=== PATIENT | male | born 1950 | race Caucasian/White ===

== ENCOUNTER 2017-11-19 11:11 | Inpatient (IN) ==
--- NOTE | 2017-11-19 13:49 | Emergency Department Note ---
Disposition Clinical Impression: Atrial fibrillation Qualifiers: Atrial fibrillation type: paroxysmal Qualified Code(s): I48.0 - Paroxysmal atrial fibrillation Disposition: Admitted As Inpatient Condition: Fair Referrals: Carmella Christianson DO [Primary Care Provider] - Forms: ED Satisfaction Letter Time of Disposition: 13:56 Arrhythmia/Palpitations HPI - General Chief Complaint: ED Arrhythmia/Palpitations Stated Complaint: A-Fib RVR(Dr. Teran) Time Seen by Provider: 11/19/17 12:19 Source: patient Limitations: no limitations Nursing Notes Reviewed: Yes Vital Signs Reviewed: Yes - History of Present Illness HPI Narrative: 67-year-old male who was seen by his supervisor inspection room today and found to be in A. fib with RVR. Sent here for further evaluation. Last echo I could find was in 2012 with an EF of 50-55%. Pt Subjective Complaint: rapid heart beat, "heart racing" Onset (ago): Just FISH [employer] Duration: constant Severity: moderate Context: occurred during rest Arrhythmia History: atrial fibrillation Associated symptoms: Reports: other (Diarrhea) - Related Data Home Medications Medication Instructions Recorded Confirmed Aspirin Enteric Coated [Aspirin EC] 81 mg PO DAILY 09/09/15 08/29/17 Atorvastatin [Lipitor] 40 mg PO DAILY 09/09/15 08/29/17 Megestrol Acetate [Megace] 400 mg PO BID 09/09/15 08/29/17 Multivitamin [Flintstones] 1 tab PO DAILY 09/09/15 08/29/17 Nitroglycerin [Nitrostat] 0.4 mg SL Q5M PRN 09/09/15 08/29/17 LevETIRAcetam [Levetiracetam] 750 mg PO BID 07/06/16 08/29/17 Zonisamide [Zonegran] 100 mg PO DAILY 07/06/16 08/29/17 Cholecalciferol (D-3) [Vitamin D] 5,000 unit PO DAILY 01/01/17 08/29/17 Clobetasol Propionate [Temovate] 1 appl TP DAILY 01/01/17 08/29/17 Diclofenac Sodium [Voltaren] 1 appl TP QID 01/01/17 08/29/17 FLUoxetine HCl [PROzac] 20 mg PO DAILY 01/01/17 08/29/17 Mirtazapine [Remeron] 15 mg PO HS 01/01/17 08/29/17 Omeprazole [PriLOSEC] 40 mg PO DAILY 01/01/17 08/29/17 Psyllium Husk [Metamucil] 0.52 gm PO DAILY 01/01/17 08/29/17 Tamsulosin [Flomax] 0.4 mg PO DAILY 01/01/17 08/29/17 Testosterone Cypionate 200 mg IM AD 01/01/17 08/29/17 [Depo-Testosterone] Previous Rx's Medication Instructions Recorded Sotalol [Betapace] 120 mg PO 1100,2300 #60 tablet 03/09/16 HYDROcodone/Acet 5/325 mg [[place] 1 tab PO Q4H PRN #12 tab 08/08/17 5-325 mg] Folic Acid 1 mg PO DAILY #30 tablet 08/22/17 Diclofenac Sodium [Voltaren] 50 mg PO Q8HR PRN #18 tablet. 08/31/17 HYDROcodone/Acet 5/325 mg [[place] 1 tab PO Q6H PRN #10 tab 08/31/17 5-325 mg] Tramadol HCl [Ultram] 50 mg PO QID #8 tab 09/23/17 Allergies Allergy/AdvReac Type Severity Reaction Status Date / Time No Known Allergies Allergy Verified 09/23/17 13:37 All systems ED: reviewed and negative except as stated. Constitutional: Denies: fever, chills, weakness, weight change Eyes: Denies: eye pain, eye discharge, vision change ENT ED: Denies: ear pain, throat pain, dental pain, hearing loss, epistaxis, congestion, dysphagia Cardiovascular: Reports: palpitations. Denies: chest pain, dyspnea on exertion , edema, syncope Respiratory: Denies: cough, dyspnea, wheezes, hemoptysis, stridor Gastrointestinal: Denies: abdominal pain, nausea, vomiting, diarrhea, constipation, hematemesis, melena, hematochezia Genitourinary: Denies: urgency, dysuria, frequency, hematuria Musculoskeletal: Denies: back pain, neck pain, arthralgia, myalgia Integumentary: Denies: rash, abrasion, lesions Neurological: Denies: headache, weakness, numbness, paresthesias, confusion, abnormal gait, vertigo Psychiatric: Denies: anxiety, depression, suicidal thoughts, homicidal thoughts , auditory hallucinations, visual hallucinations Endocrine: Denies: fatigue Hematological/Lymphatic: Denies: easy bleeding, easy bruising Allergic/Immunologic: Denies: facial swelling, urticaria Past Medical History - Past Medical History Medical history: Reports: atrial fibrillation, CVA, hyperlipidemia, hypertension , myocardial infarction, peripheral artery disease, seizures Surgical history: Reports: appendectomy, carotid endarterectomy, orthopedic, other, other Psychiatric history: Reports: no psych history - Social History Smoking Status: Former smoker Smokeless Tobacco Status: No Alcohol use: Reports: occasionally Drug use: Reports: none Physical Exam - General Limitations: no limitations General appearance: alert - Head Head exam: atraumatic, normocephalic, normal inspection - Eye Eye exam: Present: normal appearance, PERRL, EOMI - Expanded Eye Exam Pupils: Left: reactive - ENT ENT exam: normal exam, normal oropharynx, mucous membranes moist - Expanded ENT Exam External ear exam: Present: normal external inspection Mouth exam: Present: normal external inspection Teeth exam: Present: normal inspection Throat exam: Present: normal inspection - Neck Neck exam: Present: normal inspection, full ROM, trachea midline - Chest Chest inspection: Present: normal inspection, symmetric chest wall rise - Respiratory Respiratory exam: Present: normal lung sounds bilaterally - Cardiovascular Cardiovascular exam: Present: tachycardia, irregular rhythm, normal heart sounds - Abdominal Exam Abdominal exam: Present: soft, Non-Tender. Absent: tenderness, distention, guarding, rebound, rigidity - Extremities Exam Extremities exam: Present: normal inspection, full ROM. Absent: tenderness, pedal edema - Expanded Upper Extremity Exam Shoulder exam: Present: normal inspection, full ROM Arm exam: Present: normal inspection, full ROM Elbow exam: Present: normal inspection, full ROM Forearm/Wrist exam: Present: normal inspection, full ROM Hand exam: Present: normal inspection, full ROM Vascular exam: Normal: capillary refill, radial pulse - Expanded Lower Extremity Exam Hip/Pelvis exam: Present: normal inspection, full ROM Upper leg exam: Present: normal inspection, full ROM Knee exam: Present: normal inspection, full ROM Lower leg exam: Present: normal inspection, full ROM Ankle exam: Present: normal inspection, full ROM Foot/toe exam: Present: normal inspection, full ROM Neurovascular/Tendon exam: Absent: motor deficit, sensory deficit, tendon deficit Gait: not tested/not observed - Back Exam Back exam: Present: normal inspection, full ROM. Absent: tenderness - Neurological Exam Neurological exam: Present: alert, oriented X3 - Expanded Neurological Exam Patient oriented to: Present: person, place, time Coma Scale Eye Opening: Spontaneous Coma Scale Motor Response: Obeys Commands Coma Scale Verbal Response: Oriented Coma Scale Total: 15 - Psychiatric Psychiatric exam: Present: normal affect, normal mood - Skin Skin exam: Present: warm, dry, intact, normal color Course - Reevaluation(s) Reevaluation #1: 67-year-old who has a history of A. fib in the past was sent by cardiology due to atrial fibrillation with rapid ventricular response. When he arrived here he was in a sinus rhythm but he has intermittently went into A. fib while here with a rate up to 164. Patient obtain a cardiology workup and admit for observation and they will see the patient and decide where to go from here. Time: 15:35 - Consultations Consultation #1: Discussed with Dr. Paul, admit to the hospitalist with consult. Time: 15:35 Consultation #2: Discussed with Dr. Sutton, admit. Time: 15:58 Vital Signs Temperature 98.0 F 11/19/17 11:27 Pulse Rate 118 11/19/17 11:27 Respiratory Rate 18 11/19/17 11:27 Blood Pressure 117/87 11/19/17 11:27 O2 Sat by Pulse Oximetry 98 11/19/17 11:27 Temperature 98.0 F 11/19/17 11:27 Pulse Rate 118 11/19/17 11:27 Respiratory Rate 18 11/19/17 11:27 Blood Pressure 117/87 11/19/17 11:27 O2 Sat by Pulse Oximetry 98 11/19/17 11:27 Oxygen Delivery Oxygen Delivery Room Air Arrhythmia/Palpitations - Lab Data Lab results reviewed: Yes I reviewed the patient's lab results. Result diagrams: 11/19/17 13:32 11/19/17 13:32 Lab Results 11/19/17 11/19/17 11/19/17 Range/Units 13:32 13:32 13:32 WBC 11.2 H (4.3-11.1) K/mcL RBC 5.31 (4.19-5.50) M/mcL Hgb 15.6 (12.9-16.9) g/dL Hct 47.7 (37.5-50.1) % MCV 89.8 (83.0-100.0) fL MCH 29.4 (28.0-33.3) pg MCHC 32.7 (31.6-35.5) g/dL RDW 14.8 H (11.5-14.5) % Plt Count 211 (140-400) K/mcL MPV 11.3 (9.4-12.4) fL Immature Gran % 0.4 (0-4) % Seg Neutrophils % 62.4 % Lymphocytes % 25.6 % Monocytes % 9.3 % Eosinophils % 1.7 % Basophils % 0.6 % Neutrophils # 7.0 (1.6-8.9) K/mcL Lymphocytes # 2.9 (0.6-4.6) K/mcL Monocytes # 1.0 (0.0-1.3) K/mcL Eosinophils # 0.2 (0.0-0.6) K/mcL Basophils # 0.1 (0.0-0.2) K/mcL Sodium 138 (136-145) mEq/L Potassium 4.1 (3.5-5.1) mEq/L Chloride 104 (98-107) mEq/L Carbon Dioxide 23 (23-29) mEq/L BUN 7 L (8-23) mg/dL Creatinine 0.91 (0.70-1.30) mg/dL Est GFR ( Amer) > 60 (> 60) Est GFR (Non-Af Amer) > 60 (> 60) BUN/Creatinine Ratio 8 (6-26) Glucose 106 H (70-105) mg/dL Calculated Osmolality 284 (280-300) Calcium 9.6 (8.6-10.3) mg/dL Troponin I < 0.03 (< 0.04) ng/mL TSH 3.121 (0.340-5.600) mcIU/mL - Radiology Data Radiology results reviewed: Yes I reviewed the patient's radiology results. Chest X-Ray 11/19/17 11:36 IMPRESSION: No acute findings D/ / Ashli Alexis MD / Ashli Alexis MD Interpreting Provider: Ashli Alexis MD - EKG Data EKG shows normal: sinus rhythm Rate: tachycardia Rhythm: NSR Interpretation: no acute changes
[2017-11-19 13:54] LABS: Basophils # 0.1 K/mcL (0.0-0.2); Basophils % 0.6 %; Eosinophils # 0.2 K/mcL (0.0-0.6); Eosinophils % 1.7 %; Hematocrit 47.7 % (37.5-50.1); Hemoglobin 15.6 g/dL (12.9-16.9); Immature Granulocytes % 0.4 % (0-4); Lymphocytes # 2.9 K/mcL (0.6-4.6); Lymphocytes % 25.6 %; Mean Corpuscular HGB Conc 32.7 g/dL (31.6-35.5); Mean Corpuscular Hemoglobin 29.4 pg (28.0-33.3); Mean Corpuscular Volume 89.8 fL (83.0-100.0); Mean Platelet Volume 11.3 fL (9.4-12.4); Monocytes % 9.3 %; Platelet Count 211 K/mcL (140-400); Red Blood Count 5.31 M/mcL (4.19-5.50); Red Cell Distribution Width 14.8 % (11.5-14.5); Segmented Neutrophils % 62.4 %
[2017-11-19 14:42] LABS: Calcium 9.6 mg/dL (8.6-10.3); Carbon Dioxide 23 mEq/L (23-29); Chloride 104 mEq/L (98-107); Potassium 4.1 mEq/L (3.5-5.1); Sodium 138 mEq/L (136-145)
[2017-11-19 14:47] LABS: BUN/Creatinine Ratio 8 (6-26); Blood Urea Nitrogen 7 mg/dL (8-23); Glucose 106 mg/dL (70-105); Osmolality,Calculated 284 (280-300); eGFR For African Americans > 60 (> 60); eGFR For Non-African Americans > 60 (> 60)
[2017-11-19 14:57] LABS: Thyroid Stimulating Hormone 3.121 mcIU/mL (0.340-5.600)
[2017-11-19] MEDS ORDERED: *HR* OxyCODONE/APAP 5/325 TABLET PO ONE (15:27)
--- NOTE | 2017-11-19 20:59 | Internal Med History&Physical ---
Date of Encounter: 11/19/17 Time of Encounter: 17:00 Assessment and Plan (1) Atrial fibrillation with RVR Current visit: Yes Status: Acute -Patient admits to running out of his sotalol approximately 2-3 weeks ago. -TSH was within normal limits and cardiac biomarkers are negative. In addition no acute findings on chest x-ray. -Patient was noted to have a heart rate of 119 and was started on diltiazem. -Will continue Cardizem drip and consult cardiology (2) Seizures Current visit: Yes Status: Acute -Controlled, continue home medications (3) HTN (hypertension) Current visit: Yes Status: Acute -Controlled, continue home medications Qualifiers: Hypertension type: essential hypertension Qualified Code(s): I10 - Essential (primary) hypertension (4) HLD (hyperlipidemia) Current visit: Yes Status: Acute -Continue home medications Qualifiers: Hyperlipidemia type: unspecified Qualified Code(s): E78.5 - Hyperlipidemia , unspecified (5) DVT prophylaxis Current visit: Yes Status: Acute -Heparin subcutaneous Internal Medicine - H&P: HPI Chief complaint: palpitations Admitted From: Home Plans for Post Hospital Care: Home History of present illness: Patient is a 59-year-old male with past medical history significant for coronary arterial disease (stent), hypertension, TIA, seizures and COPD who presented to the ER on 11/19/17 due to palpitations. Patient admits to running out of his sotalol approximately 2-3 weeks ago. Patients manager it training office recommend the patient come into the ER for evaluation. Patient was noted to have a heart rate of 119 and was started on diltiazem. TSH was within normal limits and cardiac biomarkers are negative. In addition no acute findings on chest x-ray. Patient will be admitted to the medical floor for treatment of atrial fibrillation with RVR. Past Med Surg Social Fam HX - Past Medical History Medical history: atrial fibrillation, CVA, hyperlipidemia, hypertension, myocardial infarction, peripheral artery disease, seizures Psychiatric history: no psych history - Past Surgical History Surgical History: appendectomy, carotid endarterectomy, orthopedic, other, other - Social History Smoking Status: Former smoker Smokeless Tobacco Status: No Alcohol use: occasionally Drug use: marijuana Internal Medicine - H&P: Meds Aspirin Enteric Coated [Aspirin EC] 81 mg PO DAILY 09/09/15 [History] Atorvastatin [Lipitor] 40 mg PO DAILY 09/09/15 [History] Megestrol Acetate [Megace] 400 mg PO BID 09/09/15 [History] Multivitamin [Flintstones] 1 tab PO DAILY 09/09/15 [History] Nitroglycerin [Nitrostat] 0.4 mg SL Q5M PRN 09/09/15 [History] Sotalol [Betapace] 120 mg PO 1100,2300 #60 tablet 03/09/16 [Rx] LevETIRAcetam [Levetiracetam] 750 mg PO BID 07/06/16 [History] Zonisamide [Zonegran] 100 mg PO DAILY 07/06/16 [History] Cholecalciferol (D-3) [Vitamin D] 5,000 unit PO DAILY 01/01/17 [History] Clobetasol Propionate [Temovate] 1 appl TP DAILY 01/01/17 [History] Diclofenac Sodium [Voltaren] 1 appl TP QID 01/01/17 [History] FLUoxetine HCl [PROzac] 20 mg PO DAILY 01/01/17 [History] Mirtazapine [Remeron] 15 mg PO HS 01/01/17 [History] Omeprazole [PriLOSEC] 40 mg PO DAILY 01/01/17 [History] Psyllium Husk [Metamucil] 0.52 gm PO DAILY 01/01/17 [History] Tamsulosin [Flomax] 0.4 mg PO DAILY 01/01/17 [History] Testosterone Cypionate [Depo-Testosterone] 200 mg IM AD 01/01/17 [History] HYDROcodone/Acet 5/325 mg [[place] 5-325 mg] 1 tab PO Q4H PRN #12 tab 08/08/17 [Rx ] Folic Acid 1 mg PO DAILY #30 tablet 08/22/17 [Rx] Diclofenac Sodium [Voltaren] 50 mg PO Q8HR PRN #18 tablet. 08/31/17 [Rx] HYDROcodone/Acet 5/325 mg [[place] 5-325 mg] 1 tab PO Q6H PRN #10 tab 08/31/17 [Rx ] Tramadol HCl [Ultram] 50 mg PO QID #8 tab 09/23/17 [Rx] 3 Allergy/AdvReac Type Severity Reaction Status Date / Time No Known Allergies Allergy Verified 09/23/17 13:37 All Systems PM: A 10-system review of systems was performed and is negative for pertinent findings except as documented above in the HPI. - Constitutional Vitals: Temp Pulse Resp BP Pulse Ox 98.3 F 99 18 139/88 95 11/19/17 18:58 11/19/17 18:58 11/19/17 18:58 11/19/17 18:58 11/19/17 18:58 General appearance: Present: A&O X 3, no acute distress - Head Head exam: Present: normocephalic - Eye Eye exam: Present: EOMI. Absent: conjunctival injection - ENT ENT exam: Present: mucous membranes moist - Respiratory Respiratory exam: Present: CTAB. Absent: accessory muscle use, rales, rhonchi, wheezes - Cardiovascular Cardiovascular exam: Present: RRR, +S1, +S2. Absent: diastolic murmur, gallop, rubs, systolic murmur - GI/Abdominal GI/Abdominal exam: Present: normal bowel sounds, soft, no peritoneal signs. Absent: distended, tenderness - Neurological Exam Neurological exam: Present: oriented X3 - Psychiatric Psychiatric exam: Present: normal mood - Skin Skin exam: Present: normal color Internal Med - H&P Results - Labs CBC & Chem 7: 11/19/17 13:32 11/19/17 13:32
[2017-11-19] MEDS ORDERED: Naloxone 0.4 MG/ML INJ IVP PRN (21:05)
[2017-11-19] MEDS ORDERED: *HR* Heparin 5,000 UNIT/ML VIAL SQ SCH (22:00)
[2017-11-19 22:26] LABS: INR 1.1
[2017-11-20] MEDS ORDERED: Nitroglycerin 0.4 MG TAB.SUBL SL PRN (01:37)
[2017-11-20] MEDS: *HR* HYDROcodone/Acet 5/325 mg TABLET PO PRN ×4 (01:57→22:01)
[2017-11-20] MEDS: levETIRAcetam 250 MG TABLET PO SCH ×3 (01:57→22:01)
[2017-11-20 04:38] LABS: BUN/Creatinine Ratio 9 (6-26); Blood Urea Nitrogen 9 mg/dL (8-23); Calcium 8.9 mg/dL (8.6-10.3); Carbon Dioxide 27 mEq/L (23-29); Chloride 104 mEq/L (98-107); Glucose 93 mg/dL (70-105); Osmolality,Calculated 280 (280-300); Potassium 3.5 mEq/L (3.5-5.1); Sodium 136 mEq/L (136-145); eGFR For African Americans > 60 (> 60); eGFR For Non-African Americans > 60 (> 60)
[2017-11-20] MEDS ORDERED: *HR* Enoxaparin 80 MG/0.8 ML SYRINGE SQ SCH (06:00)
[2017-11-20 06:05] LABS: Basophils # 0.1 K/mcL (0.0-0.2); Basophils % 0.5 %; Eosinophils # 0.3 K/mcL (0.0-0.6); Eosinophils % 2.6 %; Hematocrit 39.4 % (37.5-50.1); Immature Granulocytes % 0.4 % (0-4); Lymphocytes # 2.7 K/mcL (0.6-4.6); Lymphocytes % 27.7 %; Mean Corpuscular HGB Conc 31.7 g/dL (31.6-35.5); Mean Corpuscular Hemoglobin 28.5 pg (28.0-33.3); Mean Platelet Volume 11.3 fL (9.4-12.4); Monocytes # 1.1 K/mcL (0.0-1.3); Monocytes % 10.7 %; Neutrophils # 5.7 K/mcL (1.6-8.9); Platelet Count 183 K/mcL (140-400); Red Blood Count 4.38 M/mcL (4.19-5.50); Red Cell Distribution Width 14.8 % (11.5-14.5); Segmented Neutrophils % 58.1 %
[2017-11-20 06:12] LABS: Hemoglobin 12.5 g/dL (12.9-16.9)
[2017-11-20] MEDS: Aspirin Enteric Coated 81 MG Tablet PO SCH (08:23)
[2017-11-20] MEDS: FLUoxetine 20 MG CAPSULE PO SCH (08:24)
[2017-11-20] MEDS: Megestrol Acetate 400 MG/10 ML UDC PO SCH ×2 (08:24→22:00)
[2017-11-20] MEDS ORDERED: Diclofenac Sodium [Voltaren] 1 APPL TP SCH (09:00)
--- NOTE | 2017-11-20 09:57 | Cardiology Consult Note ---
Date of Encounter: 11/20/17 Time of Encounter: 09:53 Assessment and Plan (1) Atrial fibrillation with RVR Current Visit: Yes Status: Acute Presents with atrial fibrillation with RVR in the setting of running out of sotalol over one month ago. Now back to NSR on cardizem gtt. Convert to oral metoprolol (history of CAD). C/o atypical chest discomfort with afib. He is a CHADS VASc=5 for age, HTN, CAD, and CVA2. Ideally AC with coumadin would be recommended. He was taken off coumadin due to frequent falls. Patient states that he continues to fall and hits his head all of the time. Continue asa and plavix. He is not a good candidate for anti-arrhythmic therapy due to inability to take AC. Increased risk of CVA discussed and he voiced understanding. TSH is normal. Check TTE. (2) CAD (coronary artery disease) Current Visit: Yes Status: Acute H/o VT and PCI in 2007. Last stress test in 2015. Has atypical chest pain that occurs with afib. Troponin negative. Consider stress test in out-patient setting if indicated. TTE pending. Continue asa, statin, and add beta-eunice. Qualifiers: Coronary Disease-Associated Artery/Lesion type: [place] artery [place] vs. transplanted heart: [place] heart Associated angina: without angina Qualified Code(s): I25.10 - Atherosclerotic heart disease of [place] coronary artery without angina pectoris Discussion w patient/family: The assessment and plan as outlined above was discussed with the patient and/or family members who expressed understanding and agreement. All questions were answered. Thank you for involving us in the care of your patient. Please call with any questions. History of Present Illness Consult date: 11/20/17 Requesting physician: Frantz Madden Consult reason: afib with rvr Chief complaint: "I ran out of medication." History of present illness: Mr. Hernandez is a 67 year old male with a history of PAF, CAD s/p VT in 2007 with PCI to the LAD, COPD, CVA, and seizures. He was recommended to go to the ED when he was found to have afib with RVR in the cardiology office. HR 140's. He reported running out of his sotalol over a month ago. He is not on coumadin due to frequent falls from seizures and left sided weakness d/t history of CVA. He was started on IV cardizem and converted to NSR overnight. C/o stable SOB with exertion. C/o intermittent right sided chest discomfort with palpitations at rest that is not like his previous VT. Past Med Surg Social Fam HX - Past Medical History Medical history: atrial fibrillation, coronary artery disease, CVA, hyperlipidemia, hypertension, myocardial infarction, peripheral artery disease, seizures Psychiatric history: no psych history - Past Surgical History Surgical History: appendectomy, carotid endarterectomy, orthopedic, other, other - Social History Smoking Status: Former smoker Smokeless Tobacco Status: No Alcohol use: occasionally Drug use: marijuana Medications and Allergies Aspirin Enteric Coated [Aspirin EC] 81 mg PO DAILY 09/09/15 [History] Atorvastatin [Lipitor] 40 mg PO DAILY 09/09/15 [History] Megestrol Acetate [Megace] 400 mg PO BID 09/09/15 [History] Multivitamin [Flintstones] 1 tab PO DAILY 09/09/15 [History] Nitroglycerin [Nitrostat] 0.4 mg SL Q5M PRN 09/09/15 [History] Sotalol [Betapace] 120 mg PO 1100,2300 #60 tablet 03/09/16 [Rx] LevETIRAcetam [Levetiracetam] 1,000 mg PO BID 07/06/16 [History] Zonisamide [Zonegran] 100 mg PO DAILY 07/06/16 [History] Cholecalciferol (D-3) [Vitamin D] 5,000 unit PO DAILY 01/01/17 [History] Diclofenac Sodium [Voltaren] 1 appl TP QID 01/01/17 [History] Mirtazapine [Remeron] 15 mg PO HS 01/01/17 [History] Omeprazole [PriLOSEC] 40 mg PO DAILY 01/01/17 [History] Psyllium Husk [Metamucil] 0.52 gm PO DAILY 01/01/17 [History] Tamsulosin [Flomax] 0.4 mg PO DAILY 01/01/17 [History] Testosterone Cypionate [Depo-Testosterone] 200 mg IM AD 01/01/17 [History] Folic Acid 1 mg PO DAILY #30 tablet 08/22/17 [Rx] Diclofenac Sodium [Voltaren] 50 mg PO Q8HR PRN #18 tablet. 08/31/17 [Rx] Clopidogrel [Plavix] 75 mg PO DAILY 11/20/17 [History] Cyanocobalamin (B-12) [Vitamin B12] 1,000 mcg IM AD 11/20/17 [History] 3 Allergy/AdvReac Type Severity Reaction Status Date / Time No Known Allergies Allergy Verified 09/23/17 13:37 All Systems Review: A 10-system review of systems was performed and is negative for pertinent findings except as documented above in the HPI. Physical Examination Vital Signs, Last 4 Hours Temp Pulse Resp BP Pulse Ox 11/20/17 08:27 97.9 F 77 16 146/87 96 General: Conversant, No Apparent Distress HEENT: Atraumatic, Normocephaly, Mucus Membranes Moist Neck: No JVD, Normal carotid pulses Cardiac: Reg Rate and Rhythm, Normal S1 and S2, No Murmur Lungs: Normal Breath Sounds, No Wheeze, Rales, Rhonchi Neuro: Alert and responsive, No focal deficits noted Abdomen: Soft, Non-Tender Skin: No rashes noted on visualized skin Musculoskeletal: No Chest Wall Tenderness Extremities: No Clubbing, No Cyanosis, No Edema, Normal Pulses Results 11/20/17 05:25 11/20/17 02:48 Lab Results 11/19/17 11/20/17 11/20/17 22:11 02:48 05:25 WBC 9.8 Hgb 12.5 L D Hct 39.4 Plt Count 183 INR 1.1 Sodium 136 Potassium 3.5 Chloride 104 Carbon Dioxide 27 BUN 9 Creatinine 0.99 Glucose 93 Calcium 8.9 - Imaging and Cardiology Echo: report reviewed - EKG Interpretation EKG results cardiology: personally reviewed Consult Discharge Plan - Plan Referrals: Carmella Christianson DO [Primary Care Provider] -
[2017-11-20] MEDS: CLOBETASOL PROPIONATE 15 GM TUBE TP SCH (10:17)
--- NOTE | 2017-11-20 11:01 | Event Note ---
Date of Encounter: 11/20/17 Time of Encounter: 10:51 [facility] will not allow me to provide attestation to Ayaan Jonathan's consultation from earlier today. Please consider this my attestation to that consultation. Patient independently seen and examined. Case discussed with nurse practitioner. Agree with findings, impressions, and plan as outlined in that note with the following addition: Impressions: PAF - was AF with RVR, now spontaineous conversion to NSR. Medical noncompliance - not taking sotalol CAD s/p SD 2008 s/p PCI LAD COPD Prior CVA History of seizure disorder Recommendations: Patient reportedly not on coumadin due to seizure disorder, walks with cane, describes frequent falls. Given reported inability to anti-coagulate, then recommend continue rate control strategy with aspirin/Plavix. Patient aware of increased risk of cardioembolic events. Re: CAD, continue aspirin/statin/bb therapy. If no significant findings on TTE, then no further inpatient cardiology recommendations.
[2017-11-20] MEDS: Artificial Tears SOLN 15 ML BOTTLE BOTH EYES PRN (12:42)
--- NOTE | 2017-11-20 14:11 | Electrocardiograph Report ---
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
--- NOTE | 2017-11-20 14:23 | Internal Med Progress Note ---
Date of Encounter: 11/20/17 Time of Encounter: 13:56 - Assessment and plan (1) Atrial fibrillation with RVR Current Visit: Yes Status: Acute Assessment and plan: Cardiology evaluation appreciated Started metoprolol off cardizem gtt not on anticoagulation due to history of seizures continue ASA/Plavix pt has history of CVA in the past as well f/u 2D echo (2) CAD (coronary artery disease) Current Visit: Yes Status: Chronic Assessment and plan: no signs of angina present continue ASA, Plavix, Statin, BB Qualifiers: Coronary Disease-Associated Artery/Lesion type: [place] artery [place] vs. transplanted heart: [place] heart Associated angina: without angina Qualified Code(s): I25.10 - Atherosclerotic heart disease of [place] coronary artery without angina pectoris (3) DVT prophylaxis Current Visit: Yes Status: Acute Assessment and plan: Lovenox SQ (4) HLD (hyperlipidemia) Current Visit: Yes Status: Chronic Assessment and plan: continue home dose of Lipitor Qualifiers: Hyperlipidemia type: unspecified Qualified Code(s): E78.5 - Hyperlipidemia , unspecified (5) HTN (hypertension) Current Visit: Yes Status: Chronic Assessment and plan: BP within acceptable range continue home meds Qualifiers: Hypertension type: essential hypertension Qualified Code(s): I10 - Essential (primary) hypertension - Subjective Interval history: Patient seen and examined at bedside. Resting comfortably in bed and denies any discomfort at this time. Rate currently controlled with BB and is off cardizem gtt Pt not on anticoagulation due to history of seizure dx. Cardiology on board - Constitutional Vitals: Temp Pulse Resp BP Pulse Ox 98.2 F 80 16 124/85 92 11/20/17 11:02 11/20/17 11:02 11/20/17 11:02 11/20/17 11:02 11/20/17 11:02 General appearance: Present: cooperative, A&O X 3, pleasant, no acute distress - Head Head exam: Present: atraumatic, normocephalic - Eye Eye exam: Present: conjuntiva pink, sclera anicteric - Respiratory Respiratory exam: Present: CTAB. Absent: accessory muscle use, rales, rhonchi, wheezes - Cardiovascular Cardiovascular exam: Present: irregular rhythm, +S1, +S2. Absent: diastolic murmur, systolic murmur - GI/Abdominal GI/Abdominal exam: Present: normal bowel sounds, soft, no peritoneal signs. Absent: distended, tenderness - Extremities Exam Extremities exam: Present: warm, radial pulses palpable and symmetrical. Absent : calf tenderness, cyanotic, pedal edema - Neurological Exam Neurological exam: Present: alert, oriented X3 - Psychiatric Psychiatric exam: Present: normal affect, normal mood Internal Medicine: Result - Labs CBC & Chem 7: 11/20/17 05:25 11/20/17 02:48 Labs: Short CBC 11/20/17 Range/Units 05:25 WBC 9.8 (4.3-11.1) K/mcL Hgb 12.5 L D (12.9-16.9) g/dL Hct 39.4 (37.5-50.1) % Plt Count 183 (140-400) K/mcL Neutrophils # 5.7 (1.6-8.9) K/mcL BMP 11/20/17 02:48 Sodium 136 Potassium 3.5 Chloride 104 Carbon Dioxide 27 BUN 9 Creatinine 0.99 Glucose 93 Calcium 8.9 - ABG Interpretation ABG results: PT/INR, D-dimer PT 12.0 Seconds (9.4-12.1) 11/19/17 22:11 Consult Discharge Plan - Plan Referrals: Carmella Christianson DO [Primary Care Provider] -
[2017-11-20] MEDS ORDERED: Maalox Oral Soln 30 mL PO PRN (15:00)
[2017-11-20] MEDS: Mag Hydrox/Al Hydrox/Simeth 30 ML UDC PO PRN (15:44)
[2017-11-20] MEDS: Mirtazapine 15 MG TABLET PO SCH (22:01)
[2017-11-21] MEDS: Mag Hydrox/Al Hydrox/Simeth 30 ML UDC PO PRN (00:40)
[2017-11-21 05:08] LABS: Basophils # 0.1 K/mcL (0.0-0.2); Basophils % 0.7 %; Eosinophils # 0.2 K/mcL (0.0-0.6); Eosinophils % 2.7 %; Hematocrit 37.4 % (37.5-50.1); Immature Granulocytes % 0.4 % (0-4); Lymphocytes # 2.3 K/mcL (0.6-4.6); Lymphocytes % 33.5 %; Mean Corpuscular HGB Conc 32.1 g/dL (31.6-35.5); Mean Corpuscular Volume 90.3 fL (83.0-100.0); Mean Platelet Volume 11.7 fL (9.4-12.4); Monocytes # 0.7 K/mcL (0.0-1.3); Monocytes % 10.5 %; Neutrophils # 3.6 K/mcL (1.6-8.9); Platelet Count 165 K/mcL (140-400); Red Blood Count 4.14 M/mcL (4.19-5.50); Red Cell Distribution Width 14.8 % (11.5-14.5); Segmented Neutrophils % 52.2 %
[2017-11-21 05:30] LABS: BUN/Creatinine Ratio 15 (6-26); Blood Urea Nitrogen 14 mg/dL (8-23); Calcium 8.9 mg/dL (8.6-10.3); Carbon Dioxide 23 mEq/L (23-29); Chloride 111 mEq/L (98-107); Glucose 103 mg/dL (70-105); Magnesium 2.3 mg/dL (1.6-2.6); Osmolality,Calculated 291 (280-300); Phosphorous 2.4 mg/dL (2.7-4.5); Potassium 4.6 mEq/L (3.5-5.1); Sodium 140 mEq/L (136-145); eGFR For African Americans > 60 (> 60); eGFR For Non-African Americans > 60 (> 60)
[2017-11-21] MEDS: *HR* Enoxaparin 40 MG/0.4 ML SYRINGE SQ SCH (06:36)
[2017-11-21] MEDS: Aspirin Enteric Coated 81 MG Tablet PO SCH (08:05)
[2017-11-21] MEDS: Folic Acid 1 MG TABLET PO SCH (08:05)
[2017-11-21] MEDS: FLUoxetine 20 MG CAPSULE PO SCH (08:06)
[2017-11-21] MEDS: levETIRAcetam 250 MG TABLET PO SCH ×2 (08:07→20:11)
[2017-11-21] MEDS: Megestrol Acetate 400 MG/10 ML UDC PO SCH ×2 (08:07→20:12)
[2017-11-21] MEDS: CLOBETASOL PROPIONATE 15 GM TUBE TP SCH (08:15)
[2017-11-21] MEDS: Artificial Tears SOLN 15 ML BOTTLE BOTH EYES PRN (08:15)
--- NOTE | 2017-11-21 10:22 | Discharge Summary ---
Date of Encounter: 11/21/17 Time of Encounter: 09:50 - Discharge Diagnosis (1) Atrial fibrillation with RVR Priority: Primary Status: Acute (2) CAD (coronary artery disease) Priority: Secondary Status: Chronic Qualifiers: Coronary Disease-Associated Artery/Lesion type: [place] artery [place] vs. transplanted heart: [place] heart Associated angina: without angina Qualified Code(s): I25.10 - Atherosclerotic heart disease of [place] coronary artery without angina pectoris (3) DVT prophylaxis Priority: Secondary Status: Acute (4) HLD (hyperlipidemia) Priority: Secondary Status: Chronic Qualifiers: Hyperlipidemia type: unspecified Qualified Code(s): E78.5 - Hyperlipidemia , unspecified (5) HTN (hypertension) Priority: Secondary Status: Chronic Qualifiers: Hypertension type: essential hypertension Qualified Code(s): I10 - Essential (primary) hypertension - Discharge Medications Home Medications: Aspirin Enteric Coated [Aspirin EC] 81 mg PO DAILY 09/09/15 [History] Atorvastatin [Lipitor] 40 mg PO DAILY 09/09/15 [History] Megestrol Acetate [Megace] 400 mg PO BID 09/09/15 [History] Multivitamin [Flintstones] 1 tab PO DAILY 09/09/15 [History] Nitroglycerin [Nitrostat] 0.4 mg SL Q5M PRN 09/09/15 [History] Sotalol [Betapace] 120 mg PO 1100,2300 #60 tablet 03/09/16 [Rx] LevETIRAcetam [Levetiracetam] 1,000 mg PO BID 07/06/16 [History] Zonisamide [Zonegran] 100 mg PO DAILY 07/06/16 [History] Cholecalciferol (D-3) [Vitamin D] 5,000 unit PO DAILY 01/01/17 [History] Diclofenac Sodium [Voltaren] 1 appl TP QID 01/01/17 [History] Mirtazapine [Remeron] 15 mg PO HS 01/01/17 [History] Omeprazole [PriLOSEC] 40 mg PO DAILY 01/01/17 [History] Psyllium Husk [Metamucil] 0.52 gm PO DAILY 01/01/17 [History] Tamsulosin [Flomax] 0.4 mg PO DAILY 01/01/17 [History] Testosterone Cypionate [Depo-Testosterone] 200 mg IM AD 01/01/17 [History] Folic Acid 1 mg PO DAILY #30 tablet 08/22/17 [Rx] Diclofenac Sodium [Voltaren] 50 mg PO Q8HR PRN #18 tablet. 08/31/17 [Rx] Clopidogrel [Plavix] 75 mg PO DAILY 11/20/17 [History] Cyanocobalamin (B-12) [Vitamin B12] 1,000 mcg IM AD 11/20/17 [History] Allergies/Adverse Reactions: 3 Allergy/AdvReac Type Severity Reaction Status Date / Time No Known Allergies Allergy Verified 09/23/17 13:37 Procedures/tests Complete & Pending: Procedures Performed prior 72 hours Category Date Time Status EV echocardiogram Routine Y 11/20/17 10:25 Completed Date of admission: 11/19/17 16:36 Primary care physician: Leo Ash Consults: 11/19/17 18:28 Consult to Nutrition [CONS] Routine Comment: Consulting Provider: NUTRITION Reason for Dietary Consult: MST Score Discharging clinician: Angie Crandall Anticipated date of discharge: 11/21/17 - Patient Status Condition: Fair - Discharge Instructions Follow Up With: Carmella Christianson DO [Primary Care Provider] - 11/26/17 1:30 pm (Please follow up as schedule) Hospital course: Mr. Hernandez is a 67 year old male - Time Spent with Patient Total time spent providing and/or coordinating discharge services: - Constitutional Vitals: Temp Pulse Resp BP Pulse Ox 97.3 F L 72 16 153/78 97 11/21/17 06:45 11/21/17 06:45 11/21/17 06:45 11/21/17 06:45 11/21/17 06:45 General appearance: Present: cooperative, A&O X 3, pleasant, no acute distress
--- NOTE | 2017-11-21 10:33 | Internal Med Progress Note ---
Date of Encounter: 11/21/17 Time of Encounter: 09:50 - Assessment and plan (1) Atrial fibrillation with RVR Current Visit: Yes Status: Acute Assessment and plan: Cardiology evaluation appreciated Possibly restarting Sotalol today (cardio on board) off cardizem gtt not on anticoagulation due to history of seizures continue ASA/Plavix pt has history of CVA in the past as well f/u 2D echo (2) CAD (coronary artery disease) Current Visit: Yes Status: Chronic Assessment and plan: no signs of angina present continue ASA, Plavix, Statin, BB Qualifiers: Coronary Disease-Associated Artery/Lesion type: [place] artery [place] vs. transplanted heart: [place] heart Associated angina: without angina Qualified Code(s): I25.10 - Atherosclerotic heart disease of [place] coronary artery without angina pectoris (3) DVT prophylaxis Current Visit: Yes Status: Acute Assessment and plan: Lovenox SQ (4) HLD (hyperlipidemia) Current Visit: Yes Status: Chronic Assessment and plan: continue home dose of Lipitor Qualifiers: Hyperlipidemia type: unspecified Qualified Code(s): E78.5 - Hyperlipidemia , unspecified (5) HTN (hypertension) Current Visit: Yes Status: Chronic Assessment and plan: BP within acceptable range continue home meds Qualifiers: Hypertension type: essential hypertension Qualified Code(s): I10 - Essential (primary) hypertension - Subjective Interval history: Patient seen and examined at bedside. Resting comfortably in bed and denies any discomfort at this time. Rate currently controlled with BB Pt not on anticoagulation due to history of seizure dx. Cardiology on board and possibly restarting Sotalol today since pt is in NSR and is not a candidate for anticoagulation. - Constitutional Vitals: Temp Pulse Resp BP Pulse Ox 97.3 F L 72 16 153/78 97 11/21/17 06:45 11/21/17 06:45 11/21/17 06:45 11/21/17 06:45 11/21/17 06:45 General appearance: Present: cooperative, A&O X 3, pleasant, no acute distress - Head Head exam: Present: atraumatic, normocephalic - Eye Eye exam: Present: conjuntiva pink, sclera anicteric - Respiratory Respiratory exam: Present: CTAB. Absent: respiratory distress, wheezes - Cardiovascular Cardiovascular exam: Present: RRR, +S1, +S2 - GI/Abdominal GI/Abdominal exam: Present: normal bowel sounds, soft, no peritoneal signs. Absent: distended, tenderness - Extremities Exam Extremities exam: Present: warm, radial pulses palpable and symmetrical. Absent : calf tenderness, cyanotic, pedal edema - Neurological Exam Neurological exam: Present: alert, oriented X3 - Psychiatric Psychiatric exam: Present: normal affect, normal mood Internal Medicine: Result - Labs CBC & Chem 7: 11/21/17 04:18 11/21/17 04:18 Labs: Short CBC 11/21/17 Range/Units 04:18 WBC 6.9 (4.3-11.1) K/mcL Hgb 12.0 L (12.9-16.9) g/dL Hct 37.4 L (37.5-50.1) % Plt Count 165 (140-400) K/mcL Neutrophils # 3.6 (1.6-8.9) K/mcL BMP 11/21/17 04:18 Sodium 140 Potassium 4.6 Chloride 111 H Carbon Dioxide 23 BUN 14 Creatinine 0.94 Glucose 103 Calcium 8.9 - ABG Interpretation ABG results: PT/INR, D-dimer PT 12.0 Seconds (9.4-12.1) 11/19/17 22:11 Consult Discharge Plan - Plan Referrals: Carmella Christianson DO [Primary Care Provider] - 11/26/17 1:30 pm (Please follow up as schedule)
--- NOTE | 2017-11-21 12:51 | Cardiology Progress Note ---
Date of Encounter: 11/21/17 Time of Encounter: 12:46 Assessment and Plan (1) Atrial fibrillation with RVR Current Visit: Yes Status: Acute Presents with atrial fibrillation with RVR in the setting of running out of sotalol over one month ago. Converted back to NSR on cardizem gtt. Convert to oral metoprolol (history of CAD). C/o atypical chest discomfort with afib. Denies recurrent symptoms. TTE completed shows LVEF 60-65%. Mild left ventricular diastolic dysfunction. Normal right ventricular structure and function. Mild tricuspid regurgitation. Mild pulmonary hypertension. He is a CHADS VASc=5 for age, HTN, CAD, and CVA2. Ideally AC with coumadin would be recommended. He was taken off coumadin due to frequent falls. Patient states that he continues to fall and hits his head all of the time. Continue asa and plavix. Increased risk of CVA discussed and he voiced understanding. TSH is normal. Baseline EKG shows afib with RVR. QT 318, QTc 387. Plan of care discussed with Dr. Beltre. Due to high risk for CVA and he is now back in NSr he is recommended to re-start sotalol to prevent PAF re-occurrence. Discussed with Mr. Hernandez who agrees. Recommend daily EKG. Will need monitored for first 5 doses. (2) CAD (coronary artery disease) Current Visit: Yes Status: Chronic H/o [place] and PCI in 2007. Last stress test in 2016. Has atypical chest pain that occurs with afib. Troponin negative. Consider stress test in out-patient setting if indicated. TTE shows preserved EF. Continue asa, statin, and add beta-eunice. Qualifiers: Coronary Disease-Associated Artery/Lesion type: [place] artery [place] vs. transplanted heart: [place] heart Associated angina: without angina Qualified Code(s): I25.10 - Atherosclerotic heart disease of [place] coronary artery without angina pectoris Discussion w patient/family: The assessment and plan as outlined above was discussed with the patient and/or family members who expressed understanding and agreement. All questions were answered. Thank you for involving us in the care of your patient. Please call with any questions. Subjective Principal diagnosis: atrial fibrillation Interval history: Mr. Hernandez remains NSR on telemetry. Denies chest pain or palpitations. Objective Vital Signs, Last 4 Hours Temp Pulse Resp BP Pulse Ox 02/01/18 11:18 97.5 F L 73 18 147/83 97 General: Conversant, No Apparent Distress HEENT: Atraumatic, Normocephaly, Mucus Membranes Moist Neck: No JVD, Normal carotid pulses Cardiac: Reg Rate and Rhythm, Normal S1 and S2, No Murmur Lungs: Normal Breath Sounds, No Wheeze, Rales, Rhonchi Neuro: Alert and responsive, No focal deficits noted Abdomen: Soft, Non-Tender Skin: No rashes noted on visualized skin Musculoskeletal: No Chest Wall Tenderness Extremities: No Clubbing, No Cyanosis, No Edema, Normal Pulses Results 11/21/17 04:18 11/21/17 04:18 Lab Results 11/21/17 11/21/17 04:18 04:18 WBC 6.9 Hgb 12.0 L Hct 37.4 L Plt Count 165 Sodium 140 Potassium 4.6 Chloride 111 H Carbon Dioxide 23 BUN 14 Creatinine 0.94 Glucose 103 Calcium 8.9 Magnesium 2.3 - Imaging and Cardiology Echo: report reviewed - EKG Interpretation EKG results cardiology: personally reviewed Consult Discharge Plan - Plan Referrals: Carmella Christianson DO [Primary Care Provider] - 11/26/17 1:30 pm (Please follow up as schedule)
[2017-11-21] MEDS: *HR* HYDROcodone/Acet 5/325 mg TABLET PO PRN (15:31)
[2017-11-21] MEDS: Mirtazapine 15 MG TABLET PO SCH (20:12)
[2017-11-22] MEDS: *HR* HYDROcodone/Acet 5/325 mg TABLET PO PRN ×3 (02:40→14:52)
[2017-11-22] MEDS: *HR* Enoxaparin 40 MG/0.4 ML SYRINGE SQ SCH (05:20)
[2017-11-22 06:25] LABS: Basophils % 0.5 %; Eosinophils # 0.1 K/mcL (0.0-0.6); Eosinophils % 1.5 %; Hematocrit 35.8 % (37.5-50.1); Hemoglobin 11.5 g/dL (12.9-16.9); Immature Granulocytes % 0.5 % (0-4); Lymphocytes # 2.6 K/mcL (0.6-4.6); Lymphocytes % 32.9 %; Mean Corpuscular HGB Conc 32.1 g/dL (31.6-35.5); Mean Corpuscular Hemoglobin 29.2 pg (28.0-33.3); Mean Corpuscular Volume 90.9 fL (83.0-100.0); Mean Platelet Volume 11.8 fL (9.4-12.4); Monocytes # 0.8 K/mcL (0.0-1.3); Monocytes % 10.2 %; Neutrophils # 4.4 K/mcL (1.6-8.9); Platelet Count 151 K/mcL (140-400); Red Blood Count 3.94 M/mcL (4.19-5.50); Segmented Neutrophils % 54.4 %
[2017-11-22 07:01] LABS: BUN/Creatinine Ratio 18 (6-26); Blood Urea Nitrogen 17 mg/dL (8-23); Calcium 8.2 mg/dL (8.6-10.3); Carbon Dioxide 21 mEq/L (23-29); Chloride 114 mEq/L (98-107); Glucose 115 mg/dL (70-105); Magnesium 2.2 mg/dL (1.6-2.6); Osmolality,Calculated 292 (280-300); Phosphorous 2.4 mg/dL (2.7-4.5); Potassium 4.2 mEq/L (3.5-5.1); Sodium 140 mEq/L (136-145); eGFR For African Americans > 60 (> 60); eGFR For Non-African Americans > 60 (> 60)
[2017-11-22] MEDS: Folic Acid 1 MG TABLET PO SCH (08:03)
[2017-11-22] MEDS: Aspirin Enteric Coated 81 MG Tablet PO SCH (08:03)
[2017-11-22] MEDS: FLUoxetine 20 MG CAPSULE PO SCH (08:03)
[2017-11-22] MEDS: levETIRAcetam 250 MG TABLET PO SCH ×2 (08:03→21:05)
[2017-11-22] MEDS: Artificial Tears SOLN 15 ML BOTTLE BOTH EYES PRN (08:04)
[2017-11-22] MEDS: CLOBETASOL PROPIONATE 15 GM TUBE TP SCH (08:04)
[2017-11-22] MEDS: Megestrol Acetate 400 MG/10 ML UDC PO SCH ×2 (08:04→21:05)
--- NOTE | 2017-11-22 10:05 | Cardiology Progress Note ---
Date of Encounter: 11/22/17 Time of Encounter: 07:20 Assessment and Plan (1) Atrial fibrillation with RVR Current Visit: Yes Status: Acute Presents with atrial fibrillation with RVR in the setting of running out of sotalol over one month ago. Converted back to NSR on cardizem gtt. Convert to oral metoprolol (history of CAD). C/o atypical chest discomfort with afib. Denies recurrent symptoms. TTE completed shows LVEF 60-65%. Mild left ventricular diastolic dysfunction. Normal right ventricular structure and function. Mild tricuspid regurgitation. Mild pulmonary hypertension. He is a CHADS VASc=5 for age, HTN, CAD, and CVA2. Ideally AC with coumadin would be recommended. He was taken off coumadin due to frequent falls. Patient states that he continues to fall and hits his head all of the time. Continue asa and plavix. Increased risk of CVA discussed and he voiced understanding. TSH is normal. Started back on sotalol to reduce risk of PAF and CVA. Metoprolol d/cd. WIll need monitored for 5 doses (through saturday afternoon. S/p 2 doses). Third dose this afternoon. Avg HR 82. HR noted to decrease to 40 bpm for short period this morning. Metoprolol stopped today. Baseline EKG shows afib with RVR. QT 318, QTc 387. EKG today shows SR, HR 61. QT/QTc 409/411, QRS 89. (2) CAD (coronary artery disease) Current Visit: Yes Status: Chronic H/o [place] and PCI in 2007. Last stress test in 2016. Has atypical chest pain that occurs with afib. Troponin negative. Consider stress test in out-patient setting if indicated. TTE shows preserved EF. Continue asa, statin, and add beta-eunice. Qualifiers: Coronary Disease-Associated Artery/Lesion type: [place] artery [place] vs. transplanted heart: [place] heart Associated angina: without angina Qualified Code(s): I25.10 - Atherosclerotic heart disease of [place] coronary artery without angina pectoris Discussion w patient/family: The assessment and plan as outlined above was discussed with the patient and/or family members who expressed understanding and agreement. All questions were answered. Thank you for involving us in the care of your patient. Please call with any questions. Subjective Principal diagnosis: atrial fibrillation Interval history: Mr. Hernandez remains NSR on telemetry. Denies chest pain or palpitations. No complaints. Objective Vital Signs, Last 4 Hours Temp Pulse Resp BP Pulse Ox 11/22/17 09:49 97.6 F 67 17 149/77 97 11/22/17 06:28 97.9 F 63 16 156/87 98 General: Conversant, No Apparent Distress HEENT: Atraumatic, Normocephaly, Mucus Membranes Moist Neck: No JVD, Normal carotid pulses Cardiac: Reg Rate and Rhythm, Normal S1 and S2, No Murmur Lungs: Normal Breath Sounds, No Wheeze, Rales, Rhonchi Neuro: Alert and responsive, No focal deficits noted Abdomen: Soft, Non-Tender Skin: No rashes noted on visualized skin Musculoskeletal: No Chest Wall Tenderness Extremities: No Clubbing, No Cyanosis, No Edema, Normal Pulses Results 11/22/17 05:31 11/22/17 05:31 Lab Results 11/22/17 11/22/17 05:31 05:31 WBC 8.0 Hgb 11.5 L Hct 35.8 L Plt Count 151 Sodium 140 Potassium 4.2 Chloride 114 H Carbon Dioxide 21 L BUN 17 Creatinine 0.96 Glucose 115 H Calcium 8.2 L Magnesium 2.2 - EKG Interpretation EKG results cardiology: personally reviewed Consult Discharge Plan - Plan Referrals: Carmella Christianson DO [Primary Care Provider] - 11/26/17 1:30 pm (Please follow up as schedule)
--- NOTE | 2017-11-22 12:38 | Internal Med Progress Note ---
Date of Encounter: 11/22/17 Time of Encounter: 12:05 - Assessment and plan (1) Atrial fibrillation with RVR Current Visit: Yes Status: Acute Assessment and plan: Cardiology evaluation appreciated Restarted Sotalol (s/p 2 doses, need to be monitored for 5 doses total) BB discontinued due to bradycardia will continue to closely monitor not on anticoagulation due to history of seizures continue ASA/Plavix pt has history of CVA in the past as well 2D echo reported LVEF of 60-65% with mild LV diastolic dysfunction, normal RV structure and function, Mild TR, Mild Pulm HTN (2) CAD (coronary artery disease) Current Visit: Yes Status: Chronic Assessment and plan: no signs of angina present continue ASA, Plavix, Statin, BB Qualifiers: Coronary Disease-Associated Artery/Lesion type: [place] artery [place] vs. transplanted heart: [place] heart Associated angina: without angina Qualified Code(s): I25.10 - Atherosclerotic heart disease of [place] coronary artery without angina pectoris (3) DVT prophylaxis Current Visit: Yes Status: Acute Assessment and plan: Lovenox SQ (4) HLD (hyperlipidemia) Current Visit: Yes Status: Chronic Assessment and plan: continue home dose of Lipitor Qualifiers: Hyperlipidemia type: unspecified Qualified Code(s): E78.5 - Hyperlipidemia , unspecified (5) HTN (hypertension) Current Visit: Yes Status: Chronic Assessment and plan: BP within acceptable range continue home meds Qualifiers: Hypertension type: essential hypertension Qualified Code(s): I10 - Essential (primary) hypertension - Subjective Interval history: Patient seen and examined at bedside. Resting comfortably in bed and denies any discomfort at this time. Remains in NSR noted to be bradycardic overnight, BB discontinued - Constitutional Vitals: Temp Pulse Resp BP Pulse Ox 97.6 F 67 17 149/77 97 11/22/17 09:49 11/22/17 09:49 11/22/17 09:49 11/22/17 09:49 11/22/17 09:49 General appearance: Present: cooperative, A&O X 3, pleasant, no acute distress - Head Head exam: Present: atraumatic, normocephalic - Eye Eye exam: Present: conjuntiva pink, sclera anicteric - Respiratory Respiratory exam: Present: CTAB. Absent: respiratory distress, wheezes - Cardiovascular Cardiovascular exam: Present: RRR, +S1, +S2. Absent: diastolic murmur, gallop, rubs, systolic murmur - GI/Abdominal GI/Abdominal exam: Present: normal bowel sounds, soft, no peritoneal signs. Absent: distended, tenderness - Extremities Exam Extremities exam: Present: warm, radial pulses palpable and symmetrical. Absent : calf tenderness, pedal edema - Neurological Exam Neurological exam: Present: alert, oriented X3 - Psychiatric Psychiatric exam: Present: normal affect, normal mood Internal Medicine: Result - Labs CBC & Chem 7: 11/22/17 05:31 11/22/17 05:31 Labs: Short CBC 11/22/17 Range/Units 05:31 WBC 8.0 (4.3-11.1) K/mcL Hgb 11.5 L (12.9-16.9) g/dL Hct 35.8 L (37.5-50.1) % Plt Count 151 (140-400) K/mcL Neutrophils # 4.4 (1.6-8.9) K/mcL BMP 11/22/17 05:31 Sodium 140 Potassium 4.2 Chloride 114 H Carbon Dioxide 21 L BUN 17 Creatinine 0.96 Glucose 115 H Calcium 8.2 L - ABG Interpretation ABG results: PT/INR, D-dimer PT 12.0 Seconds (9.4-12.1) 11/19/17 22:11 Consult Discharge Plan - Plan Referrals: Carmella Christianson DO [Primary Care Provider] - 11/26/17 1:30 pm (Please follow up as schedule)
[2017-11-22] MEDS: Mag Hydrox/Al Hydrox/Simeth 30 ML UDC PO PRN ×2 (14:52→21:06)
--- NOTE | 2017-11-22 18:06 | Electrocardiograph Report ---
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
[2017-11-22] MEDS: Mirtazapine 15 MG TABLET PO SCH (21:05)
[2017-11-23] MEDS: *HR* Enoxaparin 40 MG/0.4 ML SYRINGE SQ SCH (05:35)
[2017-11-23] MEDS: Mag Hydrox/Al Hydrox/Simeth 30 ML UDC PO PRN (06:14)
[2017-11-23 06:46] LABS: Basophils # 0.1 K/mcL (0.0-0.2); Basophils % 0.6 %; Eosinophils # 0.3 K/mcL (0.0-0.6); Eosinophils % 3.1 %; Hematocrit 38.2 % (37.5-50.1); Hemoglobin 12.1 g/dL (12.9-16.9); Immature Granulocytes % 0.7 % (0-4); Lymphocytes # 2.1 K/mcL (0.6-4.6); Lymphocytes % 21.7 %; Mean Corpuscular HGB Conc 31.7 g/dL (31.6-35.5); Mean Corpuscular Hemoglobin 29.2 pg (28.0-33.3); Mean Platelet Volume 11.6 fL (9.4-12.4); Monocytes % 9.9 %; Neutrophils # 6.3 K/mcL (1.6-8.9); Platelet Count 174 K/mcL (140-400); Red Blood Count 4.15 M/mcL (4.19-5.50); Red Cell Distribution Width 15.1 % (11.5-14.5)
[2017-11-23 07:13] LABS: BUN/Creatinine Ratio 16 (6-26); Blood Urea Nitrogen 14 mg/dL (8-23); Calcium 8.5 mg/dL (8.6-10.3); Carbon Dioxide 23 mEq/L (23-29); Chloride 113 mEq/L (98-107); Glucose 118 mg/dL (70-105); Magnesium 2.3 mg/dL (1.6-2.6); Osmolality,Calculated 292 (280-300); Phosphorous 3.2 mg/dL (2.7-4.5); Potassium 4.3 mEq/L (3.5-5.1); Sodium 140 mEq/L (136-145); eGFR For African Americans > 60 (> 60); eGFR For Non-African Americans > 60 (> 60)
[2017-11-23] MEDS: levETIRAcetam 250 MG TABLET PO SCH (08:18)
[2017-11-23] MEDS: Aspirin Enteric Coated 81 MG Tablet PO SCH (08:18)
[2017-11-23] MEDS: FLUoxetine 20 MG CAPSULE PO SCH (08:18)
[2017-11-23] MEDS: Folic Acid 1 MG TABLET PO SCH (08:18)
[2017-11-23] MEDS: Megestrol Acetate 400 MG/10 ML UDC PO SCH (08:18)
[2017-11-23] MEDS: CLOBETASOL PROPIONATE 15 GM TUBE TP SCH (08:19)
--- NOTE | 2017-11-23 09:44 | Cardiology Progress Note ---
Date of Encounter: 11/23/17 Time of Encounter: 09:42 Assessment and Plan (1) Atrial fibrillation with RVR Current Visit: Yes Status: Acute Presented with atrial fibrillation with RVR in the setting of running out of sotalol over one month ago. Converted back to NSR on cardizem gtt. TTE completed LVEF 60-65%. Mild LVDD. Normal right ventricular structure and function. Mild tricuspid regurgitation. Mild pulmonary hypertension. He is a CHADS VASc=5 for age, HTN, CAD, and CVA2. Ideally AC with coumadin would be recommended. He was taken off coumadin due to frequent falls. Patient states that he continues to fall and hits his head all of the time. Continue asa and plavix. Increased risk of CVA discussed and he voiced understanding. Started back on sotalol 120mg BID to reduce risk of PAF and CVA. 5th dose to be given this AM. AVG HR 66, no significant pauses or bradycardia. Metoprolol stopped yesterday. Baseline EKG shows afib with RVR. QT 318, QTc 387. EKG 11/22/17 shows SR, HR 61. QT/QTc 409/411, QRS 89. EKG 11/23/17 shows SR, HR 71. QT/QTc 396/418ms. Cardiology signing off. Reconsult PRN. Follow-up as outpt in 2-3 weeks. Will coordinate. Okay to be discharged home today from cardiac perspective. (2) CAD (coronary artery disease) Current Visit: Yes Status: Chronic H/o [place] and PCI in 2007. Last stress test in 2016. Has atypical chest pain that occurs with afib. Troponin negative. Consider stress test in out-patient setting if indicated. TTE shows preserved EF. Continue asa, statin, bb. Qualifiers: Coronary Disease-Associated Artery/Lesion type: [place] artery [place] vs. transplanted heart: [place] heart Associated angina: without angina Qualified Code(s): I25.10 - Atherosclerotic heart disease of [place] coronary artery without angina pectoris Discussion w patient/family: The assessment and plan as outlined above was discussed with the patient and/or family members who expressed understanding and agreement. All questions were answered. Thank you for involving us in the care of your patient. Please call with any questions. I will discuss all the above with Dr. Gene Beltre and make changes as necessary. Subjective Principal diagnosis: atrial fibrillation Interval history: Pt maintaining SR on telemetry and on Sotalol 120mg BID. No cardiac complaints this AM. Objective Vital Signs, Last 4 Hours Temp Pulse Resp BP Pulse Ox 11/23/17 06:54 98.2 F 122 18 155/75 98 Vital Signs Temp Pulse Resp BP Pulse Ox 11/23/17 06:54 98.2 F 122 18 155/75 98 11/23/17 04:13 98.3 F 66 18 163/88 97 11/23/17 00:20 99.1 F 74 18 141/68 97 11/22/17 18:58 98.3 F 70 18 173/94 95 11/22/17 15:02 97.6 F 70 18 166/92 96 11/22/17 09:49 97.6 F 67 17 149/77 97 Intake and Output 11/22/17 11/23/17 11/23/17 23:59 07:59 15:59 Intake Total 360 / 360 Balance 360 / 360 Intake: Oral 360 / 360 Other: Meal Dinner Percent of Meal Consumed 100% # Voids 2 Weight 78.6 kg Patient Weight 11/23/17 23:59 Weight 78.6 kg General: Conversant, No Apparent Distress HEENT: Atraumatic, Normocephaly, Mucus Membranes Moist Neck: No JVD, Normal carotid pulses Cardiac: Reg Rate and Rhythm, Normal S1 and S2, No Murmur Lungs: Normal Breath Sounds, No Wheeze, Rales, Rhonchi Neuro: Alert and responsive, No focal deficits noted Abdomen: Soft, Non-Tender Skin: No rashes noted on visualized skin Musculoskeletal: No Chest Wall Tenderness Extremities: No Clubbing, No Cyanosis, No Edema, Normal Pulses Results 11/23/17 06:20 11/23/17 06:20 Lab Results 11/23/17 11/23/17 06:20 06:20 WBC 9.8 Hgb 12.1 L Hct 38.2 Plt Count 174 Sodium 140 Potassium 4.3 Chloride 113 H Carbon Dioxide 23 BUN 14 Creatinine 0.89 Glucose 118 H Calcium 8.5 L Magnesium 2.3 Short CBC 11/23/17 Range/Units 06:20 WBC 9.8 (4.3-11.1) K/mcL Hgb 12.1 L (12.9-16.9) g/dL Hct 38.2 (37.5-50.1) % Plt Count 174 (140-400) K/mcL Neutrophils # 6.3 (1.6-8.9) K/mcL BMP 11/23/17 Range/Units 06:20 Sodium 140 (136-145) mEq/L Potassium 4.3 (3.5-5.1) mEq/L Chloride 113 H (98-107) mEq/L Carbon Dioxide 23 (23-29) mEq/L BUN 14 (8-23) mg/dL Creatinine 0.89 (0.70-1.30) mg/dL Glucose 118 H (70-105) mg/dL Calcium 8.5 L (8.6-10.3) mg/dL Active Medications Hydrocodone Bitart/Acetaminophen ([place] 5-325 Mg) 1 tab PO Q4H PRN PRN Reason: Pain Stop: 05/22/18 01:38 Last Admin: 11/22/17 14:52 Dose: 1 tab Al Hydrox/Mg Hydrox/Simethicone (Maalox) 15 ml PO Q6HR PRN PRN Reason: Heartburn Stop: 05/22/18 15:01 Last Admin: 11/23/17 06:14 Dose: 15 ml Artificial Tears ([place] Tears) 1 drop BOTH EYES QID PRN; Protocol PRN Reason: Dry Eye(s) Stop: 05/22/18 13:01 Last Admin: 11/22/17 08:04 Dose: 1 drop Aspirin (Aspirin Ec) 81 mg PO DAILY [facility] Stop: 05/22/18 09:01 Last Admin: 11/23/17 08:18 Dose: 81 mg Atorvastatin Calcium (Lipitor) 40 mg PO DAILY [facility] Stop: 05/22/18 09:01 Last Admin: 11/23/17 08:18 Dose: 40 mg Clobetasol Propionate (Temovate 0.05%) 1 appl TP DAILY [facility] Stop: 05/22/18 09:01 Last Admin: 11/23/17 08:19 Dose: 1 appl Clopidogrel Bisulfate (Plavix) 75 mg PO DAILY [facility] Stop: 05/22/18 09:16 Last Admin: 11/23/17 08:18 Dose: 75 mg Enoxaparin Sodium (Lovenox) 40 mg SQ 0600 [facility] PRN Reason: Protocol Stop: 05/23/18 06:01 Last Admin: 02/03/18 05:35 Dose: 40 mg Fluoxetine HCl (Prozac) 20 mg PO DAILY [facility] PRN Reason: Protocol Stop: 05/22/18 09:01 Last Admin: 11/23/17 08:18 Dose: 20 mg Folic Acid (Folic Acid) 1 mg PO DAILY [facility] Stop: 05/23/18 09:01 Last Admin: 11/23/17 08:18 Dose: 1 mg Levetiracetam (Keppra) 1,000 mg PO BID [facility] Stop: 05/22/18 01:46 Last Admin: 11/23/17 08:18 Dose: 1,000 mg Megestrol Acetate (Megace) 400 mg PO BID [facility] Stop: 05/22/18 09:01 Last Admin: 11/23/17 08:18 Dose: 400 mg Mirtazapine (Remeron) 15 mg PO HS [facility] Stop: 05/22/18 21:01 Last Admin: 11/22/17 21:05 Dose: 15 mg Naloxone HCl (Narcan) 0.4 mg IVP Q2MIN PRN PRN Reason: SEE COMMENTS Stop: 05/21/18 21:06 Nitroglycerin (Nitroglycerin) 0.4 mg SL Q5M PRN PRN Reason: Chest Pain Stop: 05/22/18 01:38 Omeprazole (Prilosec) 40 mg PO DAILY [facility] Stop: 05/23/18 09:01 Last Admin: 11/23/17 08:18 Dose: 40 mg Sotalol HCl (Betapace) 120 mg PO Q12H [facility] Stop: 05/24/18 11:01 Last Admin: 11/22/17 23:28 Dose: 120 mg Tamsulosin HCl (Flomax) 0.4 mg PO [facility] PRN Reason: Protocol Stop: 05/22/18 21:01 Last Admin: 11/22/17 21:05 Dose: 0.4 mg Zonisamide (Zonegran) 100 mg PO DAILY [facility] Stop: 05/22/18 09:01 Last Admin: 11/23/17 08:18 Dose: 100 mg - EKG Interpretation EKG results cardiology: other (12 hr tele AVG HR 66, SR, no significant pauses) Consult Discharge Plan - Plan Referrals: Carmella Christianson DO [Primary Care Provider] - 11/26/17 1:30 pm (Please follow up as schedule)
--- NOTE | 2017-11-23 10:50 | Discharge Summary ---
Date of Encounter: 11/23/17 Time of Encounter: 10:15 - Discharge Diagnosis (1) Atrial fibrillation with RVR Priority: Primary Status: Acute (2) CAD (coronary artery disease) Priority: Secondary Status: Chronic Qualifiers: Coronary Disease-Associated Artery/Lesion type: [place] artery [place] vs. transplanted heart: [place] heart Associated angina: without angina Qualified Code(s): I25.10 - Atherosclerotic heart disease of [place] coronary artery without angina pectoris (3) DVT prophylaxis Priority: Secondary Status: Acute (4) HLD (hyperlipidemia) Priority: Secondary Status: Chronic Qualifiers: Hyperlipidemia type: unspecified Qualified Code(s): E78.5 - Hyperlipidemia , unspecified (5) HTN (hypertension) Priority: Secondary Status: Chronic Qualifiers: Hypertension type: essential hypertension Qualified Code(s): I10 - Essential (primary) hypertension - Discharge Medications Prescriptions: Sotalol [Betapace] 120 mg PO Q12H #60 tablet Home Medications: Aspirin Enteric Coated [Aspirin EC] 81 mg PO DAILY 09/09/15 [History] Atorvastatin [Lipitor] 40 mg PO DAILY 09/09/15 [History] Megestrol Acetate [Megace] 400 mg PO BID 09/09/15 [History] Multivitamin [Flintstones] 1 tab PO DAILY 09/09/15 [History] Nitroglycerin [Nitrostat] 0.4 mg SL Q5M PRN 09/09/15 [History] LevETIRAcetam [Levetiracetam] 1,000 mg PO BID 07/06/16 [History] Zonisamide [Zonegran] 100 mg PO DAILY 07/06/16 [History] Cholecalciferol (D-3) [Vitamin D] 5,000 unit PO DAILY 01/01/17 [History] Diclofenac Sodium [Voltaren] 1 appl TP QID 01/01/17 [History] Mirtazapine [Remeron] 15 mg PO HS 01/01/17 [History] Omeprazole [PriLOSEC] 40 mg PO DAILY 01/01/17 [History] Psyllium Husk [Metamucil] 0.52 gm PO DAILY 01/01/17 [History] Tamsulosin [Flomax] 0.4 mg PO DAILY 01/01/17 [History] Testosterone Cypionate [Depo-Testosterone] 200 mg IM AD 01/01/17 [History] Folic Acid 1 mg PO DAILY #30 tablet 08/22/17 [Rx] Diclofenac Sodium [Voltaren] 50 mg PO Q8HR PRN #18 tablet. 08/31/17 [Rx] Clopidogrel [Plavix] 75 mg PO DAILY 11/20/17 [History] Cyanocobalamin (B-12) [Vitamin B12] 1,000 mcg IM AD 11/20/17 [History] Sotalol [Betapace] 120 mg PO Q12H #60 tablet 11/23/17 [Rx] Allergies/Adverse Reactions: 3 Allergy/AdvReac Type Severity Reaction Status Date / Time No Known Allergies Allergy Verified 09/23/17 13:37 Date of admission: 11/21/17 15:05 Primary care physician: Leo Ash Consults: cardiology: Dr. Beltre Discharging clinician: Angie Crandall Anticipated date of discharge: 11/23/17 - Patient Status Disposition: Home, Self-Care Condition: Good Functional capacity at discharge: independent ambulation Overall status at discharge: patient is back to baseline - Discharge Instructions Follow Up With: Carmella Christianson DO [Primary Care Provider] - 11/26/17 1:30 pm (Please follow up as schedule) Additional Instructions: Please follow up with your primary care physician within five days after your discharge from the hospital Please follow up with cardiology within one to two weeks after your discharge from the hospital. Please continue Sotalol as prescribed. Resume all other medications as prescribed by your primary care physician. - Diet and Activity Activity: increase activity as tolerated Diet: low fat, low cholesterol, low salt diet Hospital course: Mr. Hernandez is a 67 year old male with PMH of Afib, CVA, HTN, HLD, seizures, COPD who was admitted for afib with rvr. He was seen by cardiology and started on sotalol. He responded well to therapy and was monitored for five doses total. At this time his rate is controlled. He is not on anticoagulation due to history of seizure disorder. He is currently hemodynamically stable and will be discharged to home with follow up with cardiology and pcp. Pt demonstrates understanding of his diagnosis and agree with the discharge care and plan. - Time Spent with Patient Total time spent providing and/or coordinating discharge services: Less than 30 minutes - Constitutional Vitals: Temp Pulse Resp BP Pulse Ox 98.2 F 122 18 155/75 98 11/23/17 06:54 11/23/17 06:54 11/23/17 06:54 11/23/17 06:54 11/23/17 06:54 General appearance: Present: cooperative, A&O X 3, pleasant, no acute distress - Head Head exam: Present: atraumatic, normocephalic - Eye Eye exam: Present: conjuntiva pink, sclera anicteric - Respiratory Respiratory exam: Present: CTAB. Absent: respiratory distress, wheezes - Cardiovascular Cardiovascular exam: Present: RRR, +S1, +S2. Absent: diastolic murmur, gallop, rubs, systolic murmur - GI/Abdominal GI/Abdominal exam: Present: normal bowel sounds, soft, no peritoneal signs. Absent: distended, tenderness - Extremities Exam Extremities exam: Present: warm, radial pulses palpable and symmetrical. Absent : calf tenderness, cyanotic, pedal edema - Neurological Exam Neurological exam: Present: alert, oriented X3 - Psychiatric Psychiatric exam: Present: normal affect, normal mood
[2017-11-23 10:58] VITALS: BP 143/78
--- NOTE | 2017-11-26 19:18 | Electrocardiograph Report ---
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
== END 2017-11-23 13:10 | disposition home or self-care (01) | DRG 309 ==
LOC: EMEROO 11:11 → 2ANU 11:11 → SUATTDRO 16:36 → 2ANU 17:25
PROVIDERS: ADMIT Family Medicine; ATTEND Internal Medicine

== ENCOUNTER 2018-01-14 14:32 | Inpatient (IN) ==
[2018-01-14] MEDS ORDERED: Ondansetron 4 MG/2 ML VIAL IVP ONE ×2 (16:37→19:30)
[2018-01-14] MEDS ORDERED: 0.9 % Sodium Chloride 1,000 ML IVC ONE ×2 (16:37→19:03)
[2018-01-14] MEDS ORDERED: Aspirin 81 MG TAB.CHEW PO STA (16:39)
--- NOTE | 2018-01-14 16:43 | Emergency Department Note ---
Disposition Clinical Impression: Dehydration, Renal insufficiency, Diverticulitis, Fatigue Disposition: Admitted As Inpatient Condition: Critical Referrals: Carmella Christianson DO [Primary Care Provider] - Forms: ED Satisfaction Letter Time of Disposition: 19:27 General Adult HPI - General Chief complaint: ED Weakness Stated complaint: Weakness,dehydration,not eating Time Seen by Provider: 01/14/18 16:37 - History of Present Illness Pain Scale: 0 - Related Data Home Medications Medication Instructions Recorded Confirmed Aspirin Enteric Coated [Aspirin EC] 81 mg PO DAILY 09/09/15 11/20/17 Atorvastatin [Lipitor] 40 mg PO DAILY 09/09/15 11/20/17 Megestrol Acetate [Megace] 400 mg PO BID 09/09/15 11/20/17 Multivitamin [Flintstones] 1 tab PO DAILY 09/09/15 11/20/17 Nitroglycerin [Nitrostat] 0.4 mg SL Q5M PRN 09/09/15 11/20/17 LevETIRAcetam [Levetiracetam] 1,000 mg PO BID 07/06/16 11/20/17 Zonisamide [Zonegran] 100 mg PO DAILY 07/06/16 11/20/17 Cholecalciferol (D-3) [Vitamin D] 5,000 unit PO DAILY 01/01/17 11/20/17 Diclofenac Sodium [Voltaren] 1 appl TP QID 01/01/17 11/20/17 Mirtazapine [Remeron] 15 mg PO HS 01/01/17 11/20/17 Omeprazole [PriLOSEC] 40 mg PO DAILY 01/01/17 11/20/17 Psyllium Husk [Metamucil] 0.52 gm PO DAILY 01/01/17 11/20/17 Tamsulosin [Flomax] 0.4 mg PO DAILY 01/01/17 11/20/17 Testosterone Cypionate 200 mg IM AD 01/01/17 11/20/17 [Depo-Testosterone] Clopidogrel [Plavix] 75 mg PO DAILY 11/20/17 11/20/17 Cyanocobalamin (B-12) [Vitamin B12] 1,000 mcg IM AD 11/20/17 11/20/17 Previous Rx's Medication Instructions Recorded Folic Acid 1 mg PO DAILY #30 tablet 08/22/17 Diclofenac Sodium [Voltaren] 50 mg PO Q8HR PRN #18 tablet. 08/31/17 Sotalol [Betapace] 120 mg PO Q12H #60 tablet 11/23/17 Allergies Allergy/AdvReac Type Severity Reaction Status Date / Time No Known Allergies Allergy Verified 09/23/17 13:37 Past Medical History - Past Medical History Medical history: Reports: atrial fibrillation, coronary artery disease, CVA, hyperlipidemia, hypertension, myocardial infarction, peripheral artery disease, seizures Surgical history: Reports: appendectomy, carotid endarterectomy, orthopedic, other, other Psychiatric history: Reports: no psych history - Social History Smoking Status: Current every day smoker Smokeless Tobacco Status: No Alcohol use: Reports: occasionally Drug use: Reports: marijuana Physical Exam - General General appearance: alert Course Vital Signs Temperature 97.4 F L 01/14/18 14:36 Pulse Rate 0 01/14/18 14:36 Respiratory Rate 18 01/14/18 14:36 Blood Pressure 90/70 01/14/18 14:36 O2 Sat by Pulse Oximetry 0 01/14/18 14:36 Temperature 97.4 F L 01/14/18 14:36 Pulse Rate 0 01/14/18 14:36 Respiratory Rate 18 01/14/18 14:36 Blood Pressure 90/70 01/14/18 14:36 O2 Sat by Pulse Oximetry 0 01/14/18 14:36 Oxygen Delivery Oxygen Delivery Room Air Medical Decision Making - Lab Data Result diagrams: 01/14/18 17:47 01/14/18 17:47 Lab Results 01/14/18 01/14/18 01/14/18 Range/Units 17:47 17:47 17:47 WBC 12.0 H (4.3-11.1) K/mcL RBC 5.14 (4.19-5.50) M/mcL Hgb 15.7 (12.9-16.9) g/dL Hct 45.2 (37.5-50.1) % MCV 87.9 (83.0-100.0) fL MCH 30.5 (28.0-33.3) pg MCHC 34.7 (31.6-35.5) g/dL RDW 14.0 (11.5-14.5) % Plt Count 149 (140-400) K/mcL MPV 14.1 H (9.4-12.4) fL Immature Gran % 0.8 (0-4) % Seg Neutrophils % 74.5 % Lymphocytes % 16.9 % Monocytes % 7.3 % Eosinophils % 0.3 % Basophils % 0.2 % Neutrophils # 8.9 (1.6-8.9) K/mcL Lymphocytes # 2.0 (0.6-4.6) K/mcL Monocytes # 0.9 (0.0-1.3) K/mcL Eosinophils # 0.0 (0.0-0.6) K/mcL Basophils # 0.0 (0.0-0.2) K/mcL Sodium 138 (136-145) mEq/L Potassium 4.9 (3.5-5.1) mEq/L Chloride 97 L (98-107) mEq/L Carbon Dioxide 18 L (23-29) mEq/L BUN > 130 H (8-23) mg/dL Creatinine 7.88 H (0.70-1.30) mg/dL Est GFR ( Amer) 8 L (> 60) Est GFR (Non-Af Amer) 7 L (> 60) BUN/Creatinine Ratio TNP Glucose 124 H (70-105) mg/dL Calculated Osmolality TNP Lactic Acid 1.2 (0.5-2.2) mmol/L Calcium 9.4 (8.6-10.3) mg/dL Phosphorus 10.6 H (2.7-4.5) mg/dL Magnesium 2.6 (1.6-2.6) mg/dL Total Bilirubin 0.4 (0.3-1.0) mg/dL AST 5 L (13-39) Units/L ALT 7 (7-52) Units/L Alkaline Phosphatase 67 (34-104) Units/L Troponin I < 0.03 (< 0.04) ng/mL Serum Total Protein 7.7 (6.4-8.9) g/dL Albumin 3.9 (3.5-5.7) g/dL Globulin 3.8 H (2.4-3.5) g/dL Albumin/Globulin Ratio 1.0 L (1.1-2.2) TSH 1.213 (0.340-5.600) mcIU/mL Attestation Statement - Attestation Attestation: I, Evens Burt DO, examined this patient [id number] and my medical decision-making was reviewed with Dr. Jaime Holcomb, Resident Physician. I agree with the documented findings, disposition and treatment plan as described except to the extent set forth below. Please see my progress notes for details. 67-year-old male presents to emergency room for evaluation of generalized malaise, anorexia, nausea, vomiting, inability to keep down food. Patient was at home himself. He has food available to him but has not been able to keep anything down. Denies any trauma or injury. Denies any recent medical issues or medication changes. Currently denying chest pain shortness of breath headache vision changes nausea vomiting or diarrhea here in the emergency room. Denies any fevers or chills. He has had persistent nausea and vomiting every time he goes to eat food. Denies any history of gallbladder disease, he does have cardiac related disease with one stent previously. He is currently taking Plavix and aspirin. He also is on sotalol based on his medical history. Patient's physical exam shows a frail thin poorly Gentleman who does not appear to be in any specific distress outside of that his skin turgor is poor. Fluid resuscitation will be started. His lungs are otherwise clear. Heart is regular. Abdomen is soft nontender nondistended with no guarding no rigidity no peritoneal symptoms at this time. Patient moves all 4 extremities appropriately. Patient does have just generalized malaise based on evaluation. CBC chemistry EKG troponin liver function testing as well as electrolytes will be collected and resulted here in the emergency room. Chest x-ray and CT the abdomen will be added on as well. Patient otherwise is in no apparent distress and will require fluid resuscitation stabilization. Expect the patient will have to be admitted secondary to nobody at home to help him with treatment. Patient is otherwise resting in the bed at this time. Vital signs are reviewed and are stable on presentation. His clinical exam, medical intervention, medical decision-making and disposition in the resident physician' s note. 1925 Patient found to have renal insufficiency with a creatinine of 7.88 and a BUN/ creatinine of greater than 1:30. Patient is not uremic at this time. He still mentating and answering questions appropriately. Fluid resuscitation will be started. Consultation placed to the on-call traffic superintendent Dr. Iniguez. Did not recommend emergent dialysis at this time considering the patient has no EKG changes and a stable potassium. Patient will be admitted to the hospital for fluid resuscitation management of diverticular disease as well as acute renal insufficiency. Patient otherwise will require prolonged hospitalization and stay at this point based on the presentation. He also have social welfare clerk evaluate him in the hospital setting considering the lack of use of resources in place and he has not been utilizing them. Patient will be admitted this time for definitive management.
--- NOTE | 2018-01-14 17:09 | Emergency Department Note ---
Disposition Clinical Impression: Dehydration, Renal insufficiency, Diverticulitis Fatigue Qualifiers: Fatigue type: unspecified Qualified Code(s): R53.83 - Other fatigue Nausea and vomiting Qualifiers: Vomiting type: unspecified Vomiting Intractability: non-intractable Qualified Code(s): R11.2 - Nausea with vomiting, unspecified Disposition: Admitted As Inpatient Condition: Critical Referrals: Carmella Christianson DO [Primary Care Provider] - Forms: ED Satisfaction Letter Time of Disposition: 19:36 General Adult HPI - General Chief complaint: ED Weakness Stated complaint: Weakness,dehydration,not eating Time Seen by Provider: 01/14/18 16:37 Source: patient Mode of arrival: ambulatory Limitations: no limitations Nursing Notes Reviewed: Yes Vital Signs Reviewed: Yes - History of Present Illness HPI Narrative: Patient is a 67-year-old male with past medical history of hypertension, hyperlipidemia, CAD, previous stroke that has left him with residual left upper extremity and left lower extremity weakness. He presents today due to vomiting. He states that he has been vomiting for the past 12-14 days. He also notes hoarseness of his voice for the past week. He also complains of generalized fatigue and weakness. Denies any chest pain, shortness of breath, abdominal pain, diarrhea, blood in stool, dysuria, hematuria. He does appear disheveled on exam. I asked if he had home care as he stated he lived home alone. He does have passport services but says that he does not allow them to help with much at home. Pain Scale: 0 - Related Data Home Medications Medication Instructions Recorded Confirmed Aspirin Enteric Coated [Aspirin EC] 81 mg PO DAILY 09/09/15 11/20/17 Atorvastatin [Lipitor] 40 mg PO DAILY 09/09/15 11/20/17 Megestrol Acetate [Megace] 400 mg PO BID 09/09/15 11/20/17 Multivitamin [Flintstones] 1 tab PO DAILY 09/09/15 11/20/17 Nitroglycerin [Nitrostat] 0.4 mg SL Q5M PRN 09/09/15 11/20/17 LevETIRAcetam [Levetiracetam] 1,000 mg PO BID 07/06/16 11/20/17 Zonisamide [Zonegran] 100 mg PO DAILY 07/06/16 11/20/17 Cholecalciferol (D-3) [Vitamin D] 5,000 unit PO DAILY 01/01/17 11/20/17 Diclofenac Sodium [Voltaren] 1 appl TP QID 01/01/17 11/20/17 Mirtazapine [Remeron] 15 mg PO HS 01/01/17 11/20/17 Omeprazole [PriLOSEC] 40 mg PO DAILY 01/01/17 11/20/17 Psyllium Husk [Metamucil] 0.52 gm PO DAILY 01/01/17 11/20/17 Tamsulosin [Flomax] 0.4 mg PO DAILY 01/01/17 11/20/17 Testosterone Cypionate 200 mg IM AD 01/01/17 11/20/17 [Depo-Testosterone] Clopidogrel [Plavix] 75 mg PO DAILY 11/20/17 11/20/17 Cyanocobalamin (B-12) [Vitamin B12] 1,000 mcg IM AD 11/20/17 11/20/17 Previous Rx's Medication Instructions Recorded Folic Acid 1 mg PO DAILY #30 tablet 08/22/17 Diclofenac Sodium [Voltaren] 50 mg PO Q8HR PRN #18 tablet. 08/31/17 Sotalol [Betapace] 120 mg PO Q12H #60 tablet 11/23/17 Allergies Allergy/AdvReac Type Severity Reaction Status Date / Time No Known Allergies Allergy Verified 09/23/17 13:37 All systems ED: reviewed and negative except as stated. Constitutional: Denies: fever Cardiovascular: Denies: chest pain Respiratory: Denies: cough, dyspnea Gastrointestinal: Reports: nausea, vomiting. Denies: abdominal pain, diarrhea, constipation, hematemesis, melena, hematochezia Genitourinary: Denies: urgency, dysuria, frequency, hematuria Integumentary: Denies: rash Neurological: Denies: headache, weakness, numbness, paresthesias Past Medical History - Past Medical History Attestation: Yes The following information was validated with the patient. Source: patient Medical history: Reports: atrial fibrillation, coronary artery disease, CVA, hyperlipidemia, hypertension, myocardial infarction, peripheral artery disease, seizures Surgical history: Reports: appendectomy, carotid endarterectomy, orthopedic, other, other Psychiatric history: Reports: no psych history - Social History Smoking Status: Current every day smoker Smokeless Tobacco Status: No Alcohol use: Reports: occasionally Drug use: Reports: marijuana Physical Exam - General Limitations: no limitations General appearance: alert, other (Disheveled, cachectic) - Head Head exam: atraumatic, normocephalic, normal inspection - Eye Eye exam: Present: normal appearance, PERRL, EOMI - ENT ENT exam: normal exam, normal oropharynx, mucous membranes moist - Neck Neck exam: Present: normal inspection, full ROM, trachea midline - Chest Chest inspection: Present: normal inspection, symmetric chest wall rise - Respiratory Respiratory exam: Present: normal lung sounds bilaterally - Cardiovascular Cardiovascular exam: Present: regular rate, normal rhythm, normal heart sounds - Abdominal Exam Abdominal exam: Present: soft, Non-Tender. Absent: tenderness, distention, guarding, rebound, rigidity - Extremities Exam Extremities exam: Present: normal inspection, full ROM. Absent: tenderness, pedal edema - Neurological Exam Neurological exam: Present: alert, oriented X3, CN II-XII intact, other (Left upper extremity left lower extremity weakness that is chronic for the patient for previous stroke.) - Psychiatric Psychiatric exam: Present: normal affect, normal mood - Skin Skin exam: Present: warm, dry, intact, normal color Course Course Narrative: Patient's systolic blood pressure of 90 on presentation. Otherwise, the rest of the vitals within normal limits. Patient appears cachectic, disheveled. Concern for social home status at this point even though he does have passport services. Physical exam otherwise fairly benign. Heart regular rate and rhythm , lungs clear to auscultation, abdomen soft and nontender. Due to weakness, nausea, vomiting, will perform EKG, chest x-ray, basic blood work, troponin, CT abdomen abd pelvis here will also give the patient fluids due to borderline low blood pressure. 19:33 blood pressures improved. Imaging shows mild diverticulitis of the sigmoid colon. Chest x-ray was negative for any acute cardiopulmonary process. Labs significant for acute renal failure with a creatinine of 7.88. Previous creatinine was 1.3. Patient has no history of any renal issues. Nephrology was contacted, Dr. Iniguez recommended fluid hydration at this time. Patient does have a BUN greater than 130. However, he is alert, oriented, not showing any signs of uremic encephalopathy. Chest X-Ray 01/14/18 16:38 IMPRESSION: No acute pulmonary finding. D/ / Eduardo Paredes MD / Eduardo Paredes MD Interpreting Provider: Eduardo Paredes MD Abdomen/Pelvis CT 01/14/18 16:39 IMPRESSION: Mild acute sigmoid diverticulitis. D/ / 01/14/2018 17:41:46 Ish Treadwell MD / angus Interpreting Provider: Ish Treadwell MD Vital Signs Temperature 97.4 F L 01/14/18 14:36 Pulse Rate 0 01/14/18 14:36 Respiratory Rate 18 01/14/18 14:36 Blood Pressure 90/70 01/14/18 14:36 O2 Sat by Pulse Oximetry 0 01/14/18 14:36 Temperature 97.4 F L 01/14/18 14:36 Pulse Rate 0 01/14/18 14:36 Respiratory Rate 18 01/14/18 14:36 Blood Pressure 90/70 01/14/18 14:36 O2 Sat by Pulse Oximetry 0 01/14/18 14:36 Oxygen Delivery Oxygen Delivery Room Air Medical Decision Making - MDM Narrative Medical decision making narrative: Patient's systolic blood pressure of 90 on presentation. Otherwise, the rest of the vitals within normal limits. Patient appears cachectic, disheveled. Concern for social home status at this point even though he does have passport services. Physical exam otherwise fairly benign. Heart regular rate and rhythm , lungs clear to auscultation, abdomen soft and nontender. Due to weakness, nausea, vomiting, will perform EKG, chest x-ray, basic blood work, troponin, CT abdomen abd pelvis here will also give the patient fluids due to borderline low blood pressure. 19:33 blood pressures improved. Imaging shows mild diverticulitis of the sigmoid colon. Chest x-ray was negative for any acute cardiopulmonary process. Labs significant for acute renal failure with a creatinine of 7.88. Previous creatinine was 1.3. Patient has no history of any renal issues. Nephrology was contacted, Dr. Iniguez recommended fluid hydration at this time. Patient does have a BUN greater than 130. However, he is alert, oriented, not showing any signs of uremic encephalopathy. - Medical Records Medical records reviewed: Yes I reviewed the patient's medical records. - Lab Data Lab results reviewed: Yes I reviewed the patient's lab results. Result diagrams: 01/14/18 17:47 01/14/18 17:47 Lab Results 01/14/18 01/14/18 01/14/18 Range/Units 17:47 17:47 17:47 WBC 12.0 H (4.3-11.1) K/mcL RBC 5.14 (4.19-5.50) M/mcL Hgb 15.7 (12.9-16.9) g/dL Hct 45.2 (37.5-50.1) % MCV 87.9 (83.0-100.0) fL MCH 30.5 (28.0-33.3) pg MCHC 34.7 (31.6-35.5) g/dL RDW 14.0 (11.5-14.5) % Plt Count 149 (140-400) K/mcL MPV 14.1 H (9.4-12.4) fL Immature Gran % 0.8 (0-4) % Seg Neutrophils % 74.5 % Lymphocytes % 16.9 % Monocytes % 7.3 % Eosinophils % 0.3 % Basophils % 0.2 % Neutrophils # 8.9 (1.6-8.9) K/mcL Lymphocytes # 2.0 (0.6-4.6) K/mcL Monocytes # 0.9 (0.0-1.3) K/mcL Eosinophils # 0.0 (0.0-0.6) K/mcL Basophils # 0.0 (0.0-0.2) K/mcL Sodium 138 (136-145) mEq/L Potassium 4.9 (3.5-5.1) mEq/L Chloride 97 L (98-107) mEq/L Carbon Dioxide 18 L (23-29) mEq/L BUN > 130 H (8-23) mg/dL Creatinine 7.88 H (0.70-1.30) mg/dL Est GFR ( Amer) 8 L (> 60) Est GFR (Non-Af Amer) 7 L (> 60) BUN/Creatinine Ratio TNP Glucose 124 H (70-105) mg/dL Calculated Osmolality TNP Lactic Acid 1.2 (0.5-2.2) mmol/L Calcium 9.4 (8.6-10.3) mg/dL Phosphorus 10.6 H (2.7-4.5) mg/dL Magnesium 2.6 (1.6-2.6) mg/dL Total Bilirubin 0.4 (0.3-1.0) mg/dL AST 5 L (13-39) Units/L ALT 7 (7-52) Units/L Alkaline Phosphatase 67 (34-104) Units/L Creatine Kinase 26 L (30-223) Units/L Troponin I < 0.03 (< 0.04) ng/mL Serum Total Protein 7.7 (6.4-8.9) g/dL Albumin 3.9 (3.5-5.7) g/dL Globulin 3.8 H (2.4-3.5) g/dL Albumin/Globulin Ratio 1.0 L (1.1-2.2) TSH 1.213 (0.340-5.600) mcIU/mL - Radiology Data Radiology results reviewed: Yes I reviewed the patient's radiology results. Chest X-Ray 01/14/18 16:38 IMPRESSION: No acute pulmonary finding. D/ / Eduardo Paredes MD / Eduardo Paredes MD Interpreting Provider: Eduardo Paredes MD Abdomen/Pelvis CT 01/14/18 16:39 IMPRESSION: Mild acute sigmoid diverticulitis. D/ / 01/14/2018 17:41:46 Ish Treadwell MD / angus Interpreting Provider: Ish Treadwell MD - EKG Data EKG #1 EKG attestation: Yes I reviewed and interpreted this EKG. EKG results narrative: 01/14/2018 at 17:34. Sinus bradycardia. Rate 52. DC 145. QRS 13. QTc 451. Normal axis. No acute ST elevation or depression. S.B.A.R. - S.B.A.R. Situation: Demographics, MOA Background: Presenting Complaint, Relevant PMH, Meds, & Allergies Assessment: Vital Signs, Course and respsone to treatment, Exam Concerns, Patient/Family Expectation, Pertinant Lab Results Recommendation: Barrier(s) to disposition, Recommendation based on pending studies, treatments, or consults Jaswinder Report Given to: Dr. Maryanne San Repor Time: 19:36 Attestation Statement - Attestation Attestation: I, Evens Burt DO, examined this patient [id number] and my medical decision-making was reviewed with Dr. Jaime Holcomb, Resident Physician. I agree with the documented findings, disposition and treatment plan as described except to the extent set forth below. Please see my progress notes for details.
[2018-01-14 18:03] LABS: Basophils % 0.2 %; Eosinophils % 0.3 %; Hematocrit 45.2 % (37.5-50.1); Hemoglobin 15.7 g/dL (12.9-16.9); Immature Granulocytes % 0.8 % (0-4); Lymphocytes % 16.9 %; Mean Corpuscular HGB Conc 34.7 g/dL (31.6-35.5); Mean Corpuscular Hemoglobin 30.5 pg (28.0-33.3); Mean Corpuscular Volume 87.9 fL (83.0-100.0); Mean Platelet Volume 14.1 fL (9.4-12.4); Monocytes # 0.9 K/mcL (0.0-1.3); Monocytes % 7.3 %; Neutrophils # 8.9 K/mcL (1.6-8.9); Platelet Count 149 K/mcL (140-400); Red Blood Count 5.14 M/mcL (4.19-5.50); Segmented Neutrophils % 74.5 %
[2018-01-14 18:22] LABS: Troponin I < 0.03 ng/mL (< 0.04)
[2018-01-14 18:25] LABS: Alanine Aminotransferase 7 Units/L (7-52); Albumin 3.9 g/dL (3.5-5.7); Alkaline Phosphatase 67 Units/L (34-104); Aspartate Amino Transferase 5 Units/L (13-39); Bilirubin,Total 0.4 mg/dL (0.3-1.0); Blood Urea Nitrogen > 130 mg/dL (8-23); Calcium 9.4 mg/dL (8.6-10.3); Carbon Dioxide 18 mEq/L (23-29); Chloride 97 mEq/L (98-107); Globulin 3.8 g/dL (2.4-3.5); Glucose 124 mg/dL (70-105); Magnesium 2.6 mg/dL (1.6-2.6); Phosphorous 10.6 mg/dL (2.7-4.5); Potassium 4.9 mEq/L (3.5-5.1); Sodium 138 mEq/L (136-145); Total Protein 7.7 g/dL (6.4-8.9); eGFR For African Americans 8 (> 60); eGFR For Non-African Americans 7 (> 60)
[2018-01-14 19:08] LABS: Thyroid Stimulating Hormone 1.213 mcIU/mL (0.340-5.600)
[2018-01-14] MEDS ORDERED: MetroNIDAZOLE 500 MG/100 ML 500 MG/100 ML BAG IVPB ONE (19:12)
[2018-01-14 19:31] LABS: Creatine Kinase 26 Units/L (30-223)
[2018-01-14 20:21] LABS: Bilirubin,Urine Small (Negative); Blood,Urine Negative (Negative); Clarity,Urine Clear (Clear); Color,Urine Yellow (Yellow); Glucose,Urine (UA) Normal (Normal); Ketones,Urine Negative (Negative); Leukocyte Esterase,Urine Negative (Negative); Nitrite,Urine Negative (Negative); PH,Urine 5.5 pH Units (5.0-8.0); Protein,Urine 30 mg/dL (Neg-Trace); Specific Gravity,Urine 1.028 (1.010-1.025); Urobilinogen,Urine Normal (Normal)
[2018-01-14 20:25] LABS: Bacteria,Urine None Seen per hpf (None-Few); Hyaline Casts,Urine None Seen per lpf (None-Few); Squamous Epithelial Cell,Urine Many per lpf (None-Few)
[2018-01-14 21:16] LABS: VBG Ionized Calcium 0.95 mmol/L (1.15-1.35)
--- NOTE | 2018-01-14 21:19 | Internal Med History&Physical ---
Date of Encounter: 01/14/18 Time of Encounter: 20:00 Assessment and Plan (1) Acute renal failure (ARF) Current visit: Yes Status: Acute In the ER, patient was found to be in acute renal failure with BUN greater than 130 and creatinine of 7.88 with a GFR of 7. Will continue IV fluids Nephrology consult from the ER and appreciate recommendations Qualifiers: Acute renal failure type: unspecified Qualified Code(s): N17.9 - Acute kidney failure, unspecified (2) Nausea and vomiting Current visit: Yes Status: Acute Suspect secondary to the above IV Zofran as needed Qualifiers: Vomiting type: unspecified Vomiting Intractability: non-intractable Qualified Code(s): R11.2 - Nausea with vomiting, unspecified (3) Diverticulitis Current visit: Yes Status: Acute -Patient was also found to have mild acute sigmoid diverticulitis -Will continue IV Cipro/Flagyl started in the ER (4) CAD (coronary artery disease) Current visit: No Status: Chronic Stable; continue home medications of aspirin and Plavix in addition to statin and LEONARDO inhibitor Qualifiers: Coronary Disease-Associated Artery/Lesion type: [place] artery [place] vs. transplanted heart: [place] heart Associated angina: without angina Qualified Code(s): I25.10 - Atherosclerotic heart disease of [place] coronary artery without angina pectoris (5) Seizures Current visit: No Status: Acute Continue home medications (6) DVT prophylaxis Current visit: No Status: Acute SCDs Internal Medicine - H&P: HPI Chief complaint: Nausea and vomiting Admitted From: Home Plans for Post Hospital Care: Home History of present illness: Patient is a 67-year-old male with past medical history significant for coronary artery disease and seizures who presents to the ER on 01/14/18 due to nausea and vomiting and generalized weakness. Patient reports that his symptoms have been present for approximately 2 weeks and has not been able to tolerate anything by mouth due to nausea and vomiting and as a result has felt generalized weakness. Patient decided to come to the ER for further evaluation. In the ER, patient was found to be in acute renal failure with BUN greater than 130 and creatinine of 7.88 with a GFR of 7. Nephrology was consulted from the ER with recommendations to continue IV fluids and patient will be admitted to medical surgical floor for management of acute renal failure. In addition patient was also found to have mild acute sigmoid diverticulitis and was started on IV Cipro/Flagyl in the ER and will be continued on the medical surgical floor. Past Med Surg Social Fam HX - Past Medical History Medical history: atrial fibrillation, coronary artery disease, CVA, hyperlipidemia, hypertension, myocardial infarction, peripheral artery disease, seizures Psychiatric history: no psych history - Past Surgical History Surgical History: appendectomy, carotid endarterectomy, orthopedic, other, other - Social History Smoking Status: Current every day smoker Smokeless Tobacco Status: No Alcohol use: occasionally Drug use: marijuana Internal Medicine - H&P: Meds Aspirin Enteric Coated [Aspirin EC] 81 mg PO DAILY 09/09/15 [History] Clopidogrel [Plavix] 75 mg PO DAILY 11/20/17 [History] Atorvastatin Calcium 80 mg PO HS 01/14/18 [History] Lisinopril [Zestril] 20 mg PO DAILY 01/14/18 [History] Sotalol HCl [Betapace] 120 mg PO Q12H 01/14/18 [History] levETIRAcetam [Levetiracetam] 1,000 mg PO BID 01/14/18 [History] 3 Allergy/AdvReac Type Severity Reaction Status Date / Time No Known Allergies Allergy Verified 09/23/17 13:37 All Systems PM: A 10-system review of systems was performed and is negative for pertinent findings except as documented above in the HPI. - Constitutional Vitals: Temp Pulse Resp BP Pulse Ox 97.4 F L 67 16 113/70 96 01/14/18 14:36 01/14/18 20:16 01/14/18 20:16 01/14/18 20:16 01/14/18 20:16 General appearance: Present: no acute distress - Head Head exam: Present: normocephalic - Eye Eye exam: Present: normal appearance - ENT ENT exam: Present: mucous membranes dry - Respiratory Respiratory exam: Present: CTAB - Cardiovascular Cardiovascular exam: Present: RRR, +S1, +S2. Absent: diastolic murmur, gallop, rubs, systolic murmur - GI/Abdominal GI/Abdominal exam: Present: normal bowel sounds, soft, no peritoneal signs. Absent: distended, tenderness - Extremities Exam Extremities exam: Absent: pedal edema - Neurological Exam Neurological exam: Present: oriented X3 - Psychiatric Psychiatric exam: Present: normal mood Internal Med - H&P Results - Labs CBC & Chem 7: 01/14/18 17:47 01/14/18 17:47
[2018-01-14] MEDS ORDERED: Naloxone 0.4 MG/ML INJ IVP PRN (21:28)
[2018-01-14] MEDS: 0.9 % Sodium Chloride 1,000 ML IVC SCH (23:54)
[2018-01-15] MEDS ORDERED: Promethazine 12.5 MG in 0.9 % Sodium Chloride 50 ML IVPB PRN (06:25)
[2018-01-15] MEDS: *HR* Promethazine 25 MG/ML VIAL IV PRN ×2 (07:07→16:14)
[2018-01-15 07:36] LABS: Basophils % 0.1 %; Eosinophils # 0.1 K/mcL (0.0-0.6); Eosinophils % 0.7 %; Hematocrit 47.7 % (37.5-50.1); Hemoglobin 16.2 g/dL (12.9-16.9); Immature Granulocytes % 0.5 % (0-4); Lymphocytes % 20.1 %; Mean Corpuscular Volume 88.3 fL (83.0-100.0); Mean Platelet Volume 14.3 fL (9.4-12.4); Monocytes # 0.8 K/mcL (0.0-1.3); Monocytes % 8.5 %; Neutrophils # 6.8 K/mcL (1.6-8.9); Platelet Count 126 K/mcL (140-400); Segmented Neutrophils % 70.1 %
[2018-01-15] MEDS ORDERED: MetroNIDAZOLE 500 MG/100 ML 500 MG/100 ML BAG IVPB SCH (08:00)
[2018-01-15 08:18] LABS: Blood Urea Nitrogen > 130 mg/dL (8-23); Carbon Dioxide 20 mEq/L (23-29); Chloride 105 mEq/L (98-107); Glucose 122 mg/dL (70-105); Potassium 4.6 mEq/L (3.5-5.1); Sodium 143 mEq/L (136-145); eGFR For African Americans 12 (> 60); eGFR For Non-African Americans 10 (> 60)
[2018-01-15] MEDS: 0.9 % Sodium Chloride 1,000 ML IVC SCH ×3 (09:07→23:05)
[2018-01-15] MEDS ORDERED: 0.9 % Sodium Chloride 1,000 ML IVC ONE (11:06)
--- NOTE | 2018-01-15 11:13 | Nephrology Consult Note ---
Date of Encounter: 01/15/18 Time of Encounter: 11:09 Assessment and Plan (1) Acute renal failure (ARF) Current Visit: Yes Status: Acute Patient with non-oliguiric RAHEEM secondary to dehydration from nausea and vomiting. His renal function improved overnight with IV hydration. Will his persistent low blood pressure I think he would benefit from aggressive hydration and will give another bolus of saline. Await renal ultrasound. Will check urine sodium. No need for dialysis. No need for renal biopsy at this time. Avoid nephrotoxins and adjust medications for renal function. Qualifiers: Acute renal failure type: unspecified Qualified Code(s): N17.9 - Acute kidney failure, unspecified (2) Diverticulitis Current Visit: Yes Status: Acute Patient on antibiotics. He has minimal abdominal pain. (3) Nausea and vomiting Current Visit: Yes Status: Acute Likely related to diverticulitis/colitis vs gastritis. Improving. Antiemetics as needed. Qualifiers: Vomiting type: unspecified Vomiting Intractability: non-intractable Qualified Code(s): R11.2 - Nausea with vomiting, unspecified (4) Metabolic acidosis Current Visit: Yes Status: Acute Should improve with resolution of renal failure. Follow for now. History of Present Illness - Reason for Consult Consult date: 01/15/18 Acute Kidney Injury - Chief Complaint Raheem - History of Present Illness Mr. Hernandez is a 67 yo man who presents with 2 weeks of nausea and vomiting and was found to have acute kidney injury. Nephrology was consulted for assistance with RAHEEM. He doesn't feel significantly better than admission. He has mild epigastric discomfort. He denies diarrhea. He denies fevers or sick contacts. He denies CP, SOB. Past Med Surg Social Fam HX - Past Medical History Medical history: atrial fibrillation, coronary artery disease, CVA, hyperlipidemia, hypertension, myocardial infarction, peripheral artery disease, seizures Psychiatric history: no psych history - Past Surgical History Surgical History: appendectomy, carotid endarterectomy, orthopedic, other, other - Social History Smoking Status: Current every day smoker Smokeless Tobacco Status: No Alcohol use: occasionally Drug use: marijuana - Family History Father History Unknown: Yes Medications and Allergies Aspirin Enteric Coated [Aspirin EC] 81 mg PO DAILY 09/09/15 [History] Clopidogrel [Plavix] 75 mg PO DAILY 11/20/17 [History] Atorvastatin Calcium 80 mg PO HS 01/14/18 [History] Lisinopril [Zestril] 20 mg PO DAILY 01/14/18 [History] Sotalol HCl [Betapace] 120 mg PO Q12H 01/14/18 [History] levETIRAcetam [Levetiracetam] 1,000 mg PO BID 01/14/18 [History] 3 Allergy/AdvReac Type Severity Reaction Status Date / Time No Known Allergies Allergy Verified 09/23/17 13:37 Review of Systems All Systems: reviewed and no additional remarkable complaints except as stated ( as documented in the HPI.) Exam - Vital Signs Vital signs: Initial Vital Signs Temp Pulse Resp BP Pulse Ox 97.4 F L 0 18 90/70 0 01/14/18 14:36 01/14/18 14:36 01/14/18 14:36 01/14/18 14:36 01/14/18 14:36 Vital Signs - Last 8 Hours Temp Pulse Resp BP Pulse Ox 01/15/18 06:53 97.4 F L 59 17 98/64 92 01/15/18 06:43 58 98/61 01/15/18 05:14 98.3 F 59 16 87/61 94 Intake and Output 01/14/18 01/15/18 01/15/18 23:59 07:59 15:59 Intake Total 1340 / 1340 Output Total 200 / 200 Balance 1140 / 1140 Intake: IV Fluids 1000 / 1000 0.9 % Sodium Chloride 1,000 ML 1000 / 1000 @ 110 mls/hr IVC .Q9H6M [facility] Rx# :[id number] Oral 340 / 340 Output: Urine 200 / 200 Other: Meal Breakfast Percent of Meal Consumed 80% # Voids 0 # Urine Diapers 0 0 # Bowel Movements 0 # Bowel Movement Diapers 0 Weight 66.2 kg Patient Weight 01/15/18 23:59 Weight 66.2 kg - General Appearance General appearance: well-developed, well-nourished EENT: ATNC Neck: supple Cardiology: no edema, regular rate, regular rhythm Additional Comments: bradycardic rate. Gastrointestinal: normoactive bowel sounds, no tenderness, no guarding Neurologic: alert and oriented x3 Musculoskeletal: no cyanosis Psychiatric: mood/affect appropriate Results - Lab Results 01/15/18 06:54 01/15/18 06:54 Most recent lab results Calcium 9.0 mg/dL (8.6-10.3) 01/15/18 06:54 Phosphorus 10.6 mg/dL (2.7-4.5) H 01/14/18 17:47 Magnesium 2.6 mg/dL (1.6-2.6) 01/14/18 17:47 Consult Discharge Plan - Plan Referrals: Carmella Christianson DO [Primary Care Provider] -
[2018-01-15] MEDS ORDERED: Ondansetron 4 MG/2 ML VIAL IM ONE (11:41)
[2018-01-15] MEDS ORDERED: Ondansetron 4 MG/2 ML VIAL IVP ONE (11:41)
--- NOTE | 2018-01-15 12:58 | Internal Med Progress Note ---
Date of Encounter: 01/15/18 Time of Encounter: 12:55 - Assessment and plan (1) Acute renal failure (ARF) Current Visit: Yes Status: Acute Assessment and plan: Continue IV fluids. Creatinine seems to be improving. Nephrology is following. Avoid nephrotoxins. Renal ultrasound pending. Monitor urine output. Qualifiers: Acute renal failure type: unspecified Qualified Code(s): N17.9 - Acute kidney failure, unspecified (2) Diverticulitis Current Visit: Yes Status: Acute Assessment and plan: Patient is tolerating diet. Continue with antibiotics. Switch antibiotics to Zosyn given his kidney function. Stop Cipro and Flagyl. Continue antiemetics. Continue IV fluids. (3) Seizures Current Visit: No Status: Acute Assessment and plan: Continue Keppra (4) CAD (coronary artery disease) Current Visit: No Status: Chronic Assessment and plan: Continue aspirin, statin, Plavix. The patient is on sotalol as well as for A. fib. Qualifiers: Coronary Disease-Associated Artery/Lesion type: [place] artery [place] vs. transplanted heart: [place] heart Associated angina: without angina Qualified Code(s): I25.10 - Atherosclerotic heart disease of [place] coronary artery without angina pectoris (5) Atrial fibrillation Current Visit: No Status: Acute Assessment and plan: The patient is regular. Continue sotalol. Not on anticoagulation but he is on aspirin and Plavix. Seen by cardiology last stay and deemed not the best candidate for anticoagulation due to frequent falls. Qualifiers: Atrial fibrillation type: paroxysmal Qualified Code(s): I48.0 - Paroxysmal atrial fibrillation (6) DVT prophylaxis Current Visit: No Status: Acute Assessment and plan: Heparin subcutaneous - Subjective Interval history: Patient was seen and examined. Feels better this morning. Admitted yesterday with abdominal pain and nausea and vomiting. Found to be in significant acute kidney failure. Also being treated for diverticulitis - Constitutional Vitals: Temp Pulse Resp BP Pulse Ox 98.2 F 58 17 102/66 90 01/15/18 11:07 01/15/18 11:07 01/15/18 11:07 01/15/18 11:07 01/15/18 11:07 General appearance: Present: no acute distress Exam: GEN: NAD CVS: RRR. S1, S2, No m/r/g RESP: CTAB ABD: Soft, mild lower abdomen tenderness, ND, +BS EXT: No edema. 2+ DP. No rashes NEURO: Nonfocal Internal Medicine: Result - Labs CBC & Chem 7: 01/15/18 06:54 01/15/18 06:54 Labs: Short CBC 01/15/18 Range/Units 06:54 WBC 9.7 (4.3-11.1) K/mcL Hgb 16.2 (12.9-16.9) g/dL Hct 47.7 (37.5-50.1) % Plt Count 126 L (140-400) K/mcL Neutrophils # 6.8 (1.6-8.9) K/mcL BMP 01/15/18 06:54 Sodium 143 Potassium 4.6 Chloride 105 Carbon Dioxide 20 L BUN > 130 H Creatinine 5.61 H Glucose 122 H Calcium 9.0 Consult Discharge Plan - Plan Referrals: Carmella Christianson DO [Primary Care Provider] -
[2018-01-15 14:30] LABS: Sodium, Urine 40.1 mEq/L
[2018-01-15] MEDS: Piperacillin/Tazobactam 3.375 GM in 0.9 % Sodium Chloride Mini Bag 100 ML IVPB SCH (16:00)
[2018-01-15] MEDS ORDERED: levETIRAcetam 250 MG TABLET PO SCH (18:00)
[2018-01-15] MEDS: levETIRAcetam 250 MG TABLET PO SCH (20:43)
[2018-01-15] MEDS ORDERED: Acetaminophen 325 MG TABLET PO PRN (22:45)
[2018-01-15] MEDS ORDERED: *HR* HYDROcodone/Acet 5/325 mg TABLET PO ONE (22:48)
[2018-01-16] MEDS: Piperacillin/Tazobactam 3.375 GM in 0.9 % Sodium Chloride Mini Bag 100 ML IVPB SCH ×2 (03:51→16:12)
[2018-01-16] MEDS ORDERED: GI Cocktail 40 ML EACH PO ONE (04:33)
[2018-01-16 05:01] LABS: Basophils % 0.3 %; Red Cell Distribution Width 14.2 % (11.5-14.5)
[2018-01-16 05:03] LABS: Eosinophils # 0.2 K/mcL (0.0-0.6); Eosinophils % 2.1 %; Hematocrit 38.9 % (37.5-50.1); Hemoglobin 13.2 g/dL (12.9-16.9); Immature Granulocytes % 0.8 % (0-4); Immature Platelets 8.4 % (1.1-6.1); Lymphocytes % 21.6 %; Mean Corpuscular HGB Conc 33.9 g/dL (31.6-35.5); Mean Corpuscular Hemoglobin 30.6 pg (28.0-33.3); Mean Corpuscular Volume 90.3 fL (83.0-100.0); Mean Platelet Volume 13.5 fL (9.4-12.4); Monocytes # 1.1 K/mcL (0.0-1.3); Monocytes % 12.2 %; Neutrophils # 5.8 K/mcL (1.6-8.9); Red Blood Count 4.31 M/mcL (4.19-5.50)
[2018-01-16] MEDS: *HR* Promethazine 25 MG/ML VIAL IV PRN ×2 (05:12→16:12)
[2018-01-16 05:25] LABS: Magnesium 1.8 mg/dL (1.6-2.6); Potassium 4.4 mEq/L (3.5-5.1)
[2018-01-16 05:41] LABS: Platelet Count 93 K/mcL (140-400)
--- NOTE | 2018-01-16 06:35 | Electrocardiograph Report ---
[address] [address] Test Date: 2018-01-14 Pat Name: Go Hernandez Department: 102 Room: [facility] Gender: M Milled [employer]: Phillip : 1950 Requested By: Evens Burt Order Number: [id number] Reading MD: Mahendra Kirby Measurements Intervals [place] Rate: 52 P: 48 [place]: 145 QRS: 18 QRSD: 103 T: 52 QT: 472 QTc: 451 Interpretive Statements SINUS BRADYCARDIA BASELINE ARTIFACT Electronically Signed On 01-16-2018 6:33:25 EDT by Mahendra Kirby
[2018-01-16] MEDS: Aspirin Enteric Coated 81 MG Tablet PO SCH (08:13)
[2018-01-16] MEDS: levETIRAcetam 250 MG TABLET PO SCH ×2 (08:13→20:11)
[2018-01-16] MEDS: 0.9 % Sodium Chloride 1,000 ML IVC SCH ×2 (08:14→20:12)
[2018-01-16] MEDS ORDERED: Magnesium Oxide 400 MG TABLET PO ONE (09:35)
--- NOTE | 2018-01-16 09:54 | Discharge Summary ---
- NOTES TO OUTPATIENT PROVIDER Notes to Outpatient Provider: The patient was cleared for discharge by nephrology. His kidney function was not back to baseline. We decided to hold his lisinopril at discharge as his kidney function was not at baseline. I did not start another blood pressure agent as his blood pressure was stable at discharge. He will need outpatient colonoscopy in 4-6 weeks. Date of Encounter: 01/17/18 Time of Encounter: 09:51 - Discharge Diagnosis (1) Acute renal failure (ARF) Priority: Primary Status: Acute Qualifiers: Acute renal failure type: unspecified Qualified Code(s): N17.9 - Acute kidney failure, unspecified (2) Diverticulitis Priority: Primary Status: Acute (3) Seizures Priority: Secondary Status: Acute (4) CAD (coronary artery disease) Priority: Secondary Status: Chronic Qualifiers: Coronary Disease-Associated Artery/Lesion type: [place] artery [place] vs. transplanted heart: [place] heart Associated angina: without angina Qualified Code(s): I25.10 - Atherosclerotic heart disease of [place] coronary artery without angina pectoris (5) Atrial fibrillation Priority: Secondary Status: Acute Qualifiers: Atrial fibrillation type: paroxysmal Qualified Code(s): I48.0 - Paroxysmal atrial fibrillation Hospital course: Mr. Hernandez is a 67 year old male with past medical history significant for coronary artery disease and seizures who presented to the ER on 01/14/18 due to nausea and vomiting and generalized weakness. The symptoms have been going on for 2 weeks. In the emergency department he was found to have acute renal failure with BUN greater than 130 and creatinine of 7.88 with a GFR of 7. Nephrology was consulted from the ER with recommendations to continue IV fluids and patient will be admitted to medical surgical floor for management of acute renal failure. The patient also was diagnosed with acute sigmoid diverticulitis on the CT image. He was initially started on Cipro and Flagyl however switched to Zosyn given the fact that he was already on sotalol now is worried about QT prolongation. Eventually the patient's kidney function showed remarkable improvement with IV fluids. His creatinine continued to improve and on day of discharge he was 3.05. Nephrology was okay with him being discharged as long as he stays hydrated. He was discharged with labs to be done outpatient. He will follow up with nephrology. He was discharged on Augmentin to finish treatment for acute diverticulitis. He is recommended a colonoscopy in 4-6 weeks. The patient was recommended inpatient therapy for PT but he refused. Throughout his stay the patient was verbally abusive to staff. He removed his IV on 01/16 and we wanted him to discharged then. He refused to discharged at that point and we told him that the only reason he stays for IV fluids. Eventually he agreed to have and his IV helped back up. He was discharged following day. Patient was stable for discharge on 01/17. - Time Spent with Patient Total time spent providing and/or coordinating discharge services: Greater than 30 minutes - Discharge Medications Prescriptions: Amoxicillin/Clavulanate [Augmentin] 875 mg PO BIDWM #16 tablet Home Medications: Aspirin Enteric Coated [Aspirin EC] 81 mg PO DAILY 09/09/15 [History] Clopidogrel [Plavix] 75 mg PO DAILY 11/20/17 [History] Atorvastatin Calcium 80 mg PO HS 01/14/18 [History] Sotalol HCl [Betapace] 120 mg PO Q12H 01/14/18 [History] levETIRAcetam [Levetiracetam] 1,000 mg PO BID 01/14/18 [History] Amoxicillin/Clavulanate [Augmentin] 875 mg PO BIDWM #16 tablet 01/16/18 [Rx] Allergies/Adverse Reactions: 3 Allergy/AdvReac Type Severity Reaction Status Date / Time No Known Allergies Allergy Verified 09/23/17 13:37 Date of admission: 01/14/18 21:28 Primary care physician: Leo Ash Consults: 01/15/18 13:06 Consult to Occupational Therapy [CONS] Routine Comment: Evaluate, develop and implement POC Reason for Consult: therapy/placement needs Does patient have active BEDREST order?: No Is patient medically & hemodynamically stable?: Yes Consult to Physical Therapy [CONS] Routine Comment: Evaluate, develop and implement POC Reason for Consult: PT eval Does patient have active BEDREST order?: No Is patient medically & hemodynamically stable?: Yes - Constitutional Vitals: Temp Pulse Resp BP Pulse Ox 97.5 F L 82 18 140/60 92 01/16/18 07:52 01/16/18 07:52 01/16/18 07:52 01/16/18 07:52 01/16/18 07:52 General appearance: Present: no acute distress Exam: GEN: NAD CVS: RRR. S1, S2, No m/r/g RESP: CTAB ABD: Soft, NT, ND, +BS EXT: No edema. 2+ DP. No rashes NEURO: Nonfocal - Patient Status Disposition: Home, Self-Care Condition: Fair Overall status at discharge: patient is progressing back to baseline - Ambulatory Orders Ambulatory Orders: Basic Metabolic Panel [CHEM] Time Frame: 01/20/18, Facility: [facility], Location: Lab - Discharge Instructions Follow Up With: Delgado Iniguez MD [Partnered Physician] - (web request was sent to office. Please call the office on saturday morning to schedule a hospital follow up if you do not hear from them. Thank you!) Ambar Kebede CNP [Advanced Practice Nurse] - 01/22/18 1:00 pm (UPDATED PHONE [phone]) Additional Instructions: Hold Lisinopril untill seen by your PCP or nephrology - Diet and Activity Activity: increase activity as tolerated Diet: low salt diet - VTE Documentation of Mechanical Device: Intermittent pneumatic compression device
--- NOTE | 2018-01-16 10:33 | Nephrology Progress Note ---
Date of Encounter: 01/16/18 Time of Encounter: 10:30 - Assessment and Plan (1) Acute renal failure (ARF) Current Visit: Yes Status: Acute Kidney function greatly improving Scr 3.05 from 5.61 yesterday, GFR 21 up from 10 Renal ultrasound shows mild atrophy of right kidney Patient will be discharged soon-will need f/u in office in 3 weeks and BMP one week after discharge Avoid nephrotoxins. Qualifiers: Acute renal failure type: unspecified Qualified Code(s): N17.9 - Acute kidney failure, unspecified (2) Nausea and vomiting Current Visit: Yes Status: Acute per primary team Qualifiers: Vomiting type: unspecified Vomiting Intractability: non-intractable Qualified Code(s): R11.2 - Nausea with vomiting, unspecified Subjective Principal diagnosis: DELICIA, Nausea, vomiting Interval history: Patient seen and examined. Sleeping quietly. Objective - Vital Signs Vital signs: Vital Signs Temp Pulse Resp BP Pulse Ox 01/16/18 07:52 97.5 F L 82 18 140/60 92 01/16/18 07:42 98.3 F 57 18 79/55 96 01/16/18 04:14 98 01/16/18 03:38 97.7 F 56 18 115/76 01/15/18 23:39 98.1 F 59 18 89/54 98 01/15/18 20:59 97.9 F 64 18 81/59 01/15/18 16:19 98.4 F 55 17 91/66 97 01/15/18 11:07 98.2 F 58 17 102/66 90 Intake and Output 01/15/18 01/16/18 01/16/18 23:59 07:59 15:59 Intake Total 1700 / 1700 240 / 240 1000 / 1000 Output Total 120 / 120 250 / 250 0 / 0 Balance 1580 / 1580 -10 / -10 1000 / 1000 Intake: IV Fluids 1100 / 1100 1000 / 1000 0.9 % Sodium Chloride 1,000 ML 1000 / 1000 1000 / 1000 @ 100 mls/hr IVC .Q10H [facility] Rx#: [id number] Zosyn 3.375 GM In 0.9 % Sodium 100 / 100 Chloride (Mini-Bag +) 100 ML @ 25 mls/hr IVPB Q12H [facility]MA Rx#: [id number] Oral 600 / 600 240 / 240 0 / 0 Output: Urine 120 / 120 250 / 250 0 / 0 Other: Meal Dinner Percent of Meal Consumed 85% # Voids 1 - General Appearance General appearance: Present: well-developed, well-nourished EENT: Present: ATNC Neck: Present: supple Cardiology: Present: no edema, regular rate, regular rhythm Gastrointestinal: Present: no guarding - Lab 01/16/18 04:50 01/16/18 04:50 Most recent lab results Calcium 8.0 mg/dL (8.6-10.3) L 01/16/18 04:50 Phosphorus 10.6 mg/dL (2.7-4.5) H 01/14/18 17:47 Magnesium 1.8 mg/dL (1.6-2.6) 01/16/18 04:50 Urine Creatinine 95 mg/dL 01/15/18 13:06 Urine Sodium 40.1 mEq/L 01/15/18 13:06 - VTE Documentation of Mechanical Device: Intermittent pneumatic compression device Consult Discharge Plan - Plan Additional Instructions: Hold Lisinopril untill seen by your PCP or nephrology Referrals: Delgado Iniguez MD [Partnered Physician] - (1 week) Carmella Christianson DO [Primary Care Provider] - (UPDATED PHONE [phone]) Prescriptions: Amoxicillin/Clavulanate [Augmentin] 875 mg PO BIDWM #16 tablet
--- NOTE | 2018-01-16 13:18 | Internal Med Progress Note ---
Date of Encounter: 01/16/18 Time of Encounter: 13:14 - Assessment and plan (1) Goals of care, counseling/discussion Current Visit: Yes Status: Acute Assessment and plan: Patient is not comfortable leaving. Will get PT to see him. He lives alone and has a bad living situation at home with roaches at home. He does not have good support system. Will see what PT says. Patient is not compliant with treatment plan is refusing IVF. He is verbally abusive to staff. He is to be discharged if cleared by PT to go back home. If ECF is recommended, we will get our CM to work on that. He is advised to keep his IVF while hospitalized to perfuse his kidneys. (2) Acute renal failure (ARF) Current Visit: Yes Status: Acute Assessment and plan: Continue IV fluids. He is discharged if he is refusing to keep his IV in. He was explained this by his nurse. Creatinine continues to improve. Nephrology is following. Avoid nephrotoxins. Renal ultrasound noted Monitor urine output. Qualifiers: Acute renal failure type: unspecified Qualified Code(s): N17.9 - Acute kidney failure, unspecified (3) Diverticulitis Current Visit: Yes Status: Acute Assessment and plan: Patient is tolerating diet. Continue with antibiotics. c/w zosyn and will do augmentin at d/c. Continue antiemetics. Continue IV fluids. (4) Seizures Current Visit: No Status: Acute Assessment and plan: Continue Keppra (5) CAD (coronary artery disease) Current Visit: No Status: Chronic Assessment and plan: Continue aspirin, statin, Plavix. The patient is on sotalol as well as for A. fib. Qualifiers: Coronary Disease-Associated Artery/Lesion type: [place] artery [place] vs. transplanted heart: [place] heart Associated angina: without angina Qualified Code(s): I25.10 - Atherosclerotic heart disease of [place] coronary artery without angina pectoris (6) Severe protein-calorie malnutrition Current Visit: Yes Status: Acute Assessment and plan: dietary following (7) Atrial fibrillation Current Visit: No Status: Acute Assessment and plan: The patient is regular. Continue sotalol. Not on anticoagulation but he is on aspirin and Plavix. Seen by cardiology last stay and deemed not the best candidate for anticoagulation due to frequent falls. Qualifiers: Atrial fibrillation type: paroxysmal Qualified Code(s): I48.0 - Paroxysmal atrial fibrillation - Subjective Interval history: Patient was seen and examined. Feels well but says he is weak and is not ready for discharge. Patient has been verbally abusive to staff and has not been compliant with IVF. Admitted with abdominal pain and nausea and vomiting. Found to be in significant acute kidney failure. Also being treated for diverticulitis - Constitutional Vitals: Temp Pulse Resp BP Pulse Ox 97.6 F 60 18 89/59 97 01/16/18 11:11 01/16/18 11:11 01/16/18 11:11 01/16/18 11:11 01/16/18 11:11 General appearance: Present: no acute distress Exam: GEN: NAD CVS: RRR. S1, S2, No m/r/g RESP: CTAB ABD: Soft, mild lower abdomen tenderness, ND, +BS EXT: No edema. 2+ DP. No rashes NEURO: Nonfocal Internal Medicine: Result - Labs CBC & Chem 7: 01/16/18 04:50 01/16/18 04:50 Labs: Short CBC 01/16/18 Range/Units 04:50 WBC 9.2 (4.3-11.1) K/mcL Hgb 13.2 D (12.9-16.9) g/dL Hct 38.9 (37.5-50.1) % Plt Count 93 L (140-400) K/mcL Neutrophils # 5.8 (1.6-8.9) K/mcL BMP 01/16/18 04:50 Sodium 146 H Potassium 4.4 Chloride 117 H Carbon Dioxide 20 L BUN 110 H Creatinine 3.05 H Glucose 110 H Calcium 8.0 L Cardiac Enzymes 01/16/18 Range/Units 04:50 Troponin I < 0.03 (< 0.04) ng/mL - Impressions Impressions Retroperitoneum Ultrasound 01/15/18 17:00 IMPRESSION: 1. Diffuse mild atrophy of the right kidney. 2. Otherwise, unremarkable ultrasound of the kidneys. No obstructive uropathy. D/ / Adrián Hernadez MD / Adrián Hernadez MD Interpreting Provider: Adrián Hernadez MD - VTE Documentation of Mechanical Device: Intermittent pneumatic compression device Consult Discharge Plan - Plan Additional Instructions: Hold Lisinopril untill seen by your PCP or nephrology Referrals: Delgado Iniguez MD [Partnered Physician] - (web request was sent to office. Please call the office on saturday morning to schedule a hospital follow up if you do not hear from them. Thank you!) Ambar Kebede CNP [Advanced Practice Nurse] - 01/22/18 1:00 pm (UPDATED PHONE [phone]) Prescriptions: Amoxicillin/Clavulanate [Augmentin] 875 mg PO BIDWM #16 tablet
--- NOTE | 2018-01-16 16:53 | Electrocardiograph Report ---
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
[2018-01-17] MEDS ORDERED: Famotidine 20 MG TABLET PO ONE (00:21)
[2018-01-17] MEDS ORDERED: *HR* OxyCODONE Immed Rel 5 MG TABLET PO ONE (01:14)
[2018-01-17] MEDS: Piperacillin/Tazobactam 3.375 GM in 0.9 % Sodium Chloride Mini Bag 100 ML IVPB SCH (05:12)
[2018-01-17] MEDS: 0.9 % Sodium Chloride 1,000 ML IVC SCH ×2 (07:32→09:12)
[2018-01-17] MEDS: Aspirin Enteric Coated 81 MG Tablet PO SCH (09:13)
[2018-01-17] MEDS: levETIRAcetam 250 MG TABLET PO SCH (09:13)
[2018-01-17 10:37] VITALS: BP 107/70
== END 2018-01-17 12:17 | disposition home or self-care (01) | DRG 391 ==
LOC: EMEROO 14:32 → 2ANU 14:32
PROVIDERS: ADMIT Hospitalist; ATTEND Internal Medicine Nephrology

== ENCOUNTER 2018-01-24 13:34 | Inpatient (IN) ==
[2018-01-24 15:13] LABS: Basophils % 0.3 %; Eosinophils # 0.2 K/mcL (0.0-0.6); Eosinophils % 1.4 %; Hematocrit 42.6 % (37.5-50.1); Hemoglobin 14.2 g/dL (12.9-16.9); Immature Granulocytes % 0.7 % (0-4); Lymphocytes # 2.7 K/mcL (0.6-4.6); Mean Corpuscular HGB Conc 33.3 g/dL (31.6-35.5); Mean Corpuscular Hemoglobin 30.6 pg (28.0-33.3); Mean Corpuscular Volume 91.8 fL (83.0-100.0); Mean Platelet Volume 11.7 fL (9.4-12.4); Monocytes # 1.2 K/mcL (0.0-1.3); Monocytes % 9.9 %; Neutrophils # 7.7 K/mcL (1.6-8.9); Platelet Count 241 K/mcL (140-400); Red Blood Count 4.64 M/mcL (4.19-5.50); Red Cell Distribution Width 14.7 % (11.5-14.5); Segmented Neutrophils % 64.7 %
--- NOTE | 2018-01-24 15:30 | Emergency Department Note ---
Disposition Clinical Impression: Acute kidney injury Failure to thrive Qualifiers: Failure to thrive age range: in adult Qualified Code(s): R62.7 - Adult failure to thrive Disposition: Admitted As Inpatient Condition: Fair Referrals: Carmella Christianson DO [Primary Care Provider] - Forms: Work/School Release, ED Satisfaction Letter Time of Disposition: 16:27 General Adult HPI - General Chief complaint: ED Psychiatric Symptoms Stated complaint: SI/generalized malaise Time Seen by Provider: 01/24/18 15:06 Source: patient Mode of arrival: ambulatory Limitations: no limitations Nursing Notes Reviewed: Yes Vital Signs Reviewed: Yes - History of Present Illness HPI Narrative: 67-year-old male comes in complaining of generalized malaise not eating or drinking. Patient was admitted last week was found to be in renal failure was given fluids and on discharge he continued to not be at baseline with the hope was that he would rehydrate himself however he states he is not eating or drinking. 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 Location: other Radiation: non-radiation (Generalized) Pain Severity: severe Pain Scale: 10 Quality: aching Consistency: constant Improves with: nothing Worsens with: nothing Associated symptoms: Reports: malaise Treatments Prior to Arrival: none - Related Data Home Medications Medication Instructions Recorded Confirmed Aspirin Enteric Coated [Aspirin EC] 81 mg PO DAILY 09/09/15 01/14/18 Clopidogrel [Plavix] 75 mg PO DAILY 11/20/17 01/14/18 Atorvastatin Calcium 80 mg PO HS 01/14/18 01/14/18 Sotalol HCl [Betapace] 120 mg PO Q12H 01/14/18 01/14/18 levETIRAcetam [Levetiracetam] 1,000 mg PO BID 01/14/18 01/14/18 Previous Rx's Medication Instructions Recorded Amoxicillin/Clavulanate [Augmentin] 875 mg PO BIDWM #16 tablet 01/16/18 Allergies Allergy/AdvReac Type Severity Reaction Status Date / Time No Known Allergies Allergy Verified 01/24/18 13:52 All systems ED: reviewed and negative except as stated. Constitutional: Denies: fever, chills, weakness, weight change Eyes: Denies: eye pain, eye discharge, vision change ENT ED: Denies: ear pain, throat pain, dental pain, hearing loss, epistaxis, congestion, dysphagia Cardiovascular: Denies: chest pain, palpitations, dyspnea on exertion, edema, syncope Respiratory: Denies: cough, dyspnea, wheezes, hemoptysis, stridor Gastrointestinal: Denies: abdominal pain, nausea, vomiting, diarrhea, constipation, hematemesis, melena, hematochezia Genitourinary: Denies: urgency, dysuria, frequency, hematuria Musculoskeletal: Reports: arthralgia. Denies: back pain, neck pain, myalgia Integumentary: Denies: rash, abrasion, lesions Neurological: Denies: headache, weakness, numbness, paresthesias, confusion, abnormal gait, vertigo Psychiatric: Denies: anxiety, depression, suicidal thoughts, homicidal thoughts , auditory hallucinations, visual hallucinations Endocrine: Denies: fatigue Hematological/Lymphatic: Denies: easy bleeding, easy bruising Allergic/Immunologic: Denies: facial swelling, urticaria Past Medical History - Past Medical History Medical history: Reports: atrial fibrillation, coronary artery disease, CVA, hyperlipidemia, hypertension, myocardial infarction, peripheral artery disease, seizures Surgical history: Reports: appendectomy, carotid endarterectomy, orthopedic, other, other Psychiatric history: Reports: no psych history - Social History Smoking Status: Current every day smoker Smokeless Tobacco Status: No Alcohol use: Reports: occasionally Drug use: Reports: marijuana Physical Exam - General Limitations: no limitations General appearance: alert - Head Head exam: atraumatic, normocephalic, normal inspection - Eye Eye exam: Present: normal appearance, PERRL, EOMI - ENT ENT exam: normal exam, normal oropharynx, mucous membranes moist - Neck Neck exam: Present: normal inspection, full ROM, trachea midline - Chest Chest inspection: Present: normal inspection, symmetric chest wall rise - Respiratory Respiratory exam: Present: normal lung sounds bilaterally - Cardiovascular Cardiovascular exam: Present: regular rate, normal rhythm, normal heart sounds - Abdominal Exam Abdominal exam: Present: soft, Non-Tender. Absent: tenderness, distention, guarding, rebound, rigidity - Extremities Exam Extremities exam: Present: normal inspection, full ROM. Absent: tenderness, pedal edema - Expanded Lower Extremity Exam Neurovascular/Tendon exam: Absent: motor deficit, sensory deficit, tendon deficit Gait: observed and normal - Back Exam Back exam: Present: normal inspection, full ROM. Absent: tenderness - Neurological Exam Neurological exam: Present: alert, oriented X3 - Psychiatric Psychiatric exam: Present: normal affect, normal mood - Skin Skin exam: Present: warm, dry, intact, normal color Course - Reevaluation(s) Reevaluation #1: 67-year-old presents with poor by mouth intake and worsening renal failure. He was admitted a week or so ago. He went up to 5.78 it was down to less than 2 but is back up to 2.78 at this time or admit for IV hydration. Time: 16:26 - Consultations Consultation #1: Discussed with Dr. Shoemaker, admit Time: 16:27 Vital Signs Temperature 97.9 F 01/24/18 13:52 Pulse Rate 86 01/24/18 13:52 Respiratory Rate 20 01/24/18 13:52 Blood Pressure 0/0 01/24/18 13:52 O2 Sat by Pulse Oximetry 98 01/24/18 13:52 Temperature 97.9 F 01/24/18 13:52 Pulse Rate 86 01/24/18 13:52 Respiratory Rate 20 01/24/18 13:52 Blood Pressure 0/0 01/24/18 13:52 O2 Sat by Pulse Oximetry 98 01/24/18 13:52 Oxygen Delivery Oxygen Delivery Room Air Medical Decision Making - Lab Data Result diagrams: 01/24/18 15:59 01/24/18 14:05 Lab Results 01/24/18 01/24/18 01/24/18 Range/Units 14:05 14:05 15:59 WBC 11.9 H 11.2 H (4.3-11.1) K/mcL RBC 4.64 4.97 (4.19-5.50) M/mcL Hgb 14.2 14.9 (12.9-16.9) g/dL Hct 42.6 44.8 (37.5-50.1) % MCV 91.8 90.1 (83.0-100.0) fL MCH 30.6 30.0 (28.0-33.3) pg MCHC 33.3 33.3 (31.6-35.5) g/dL RDW 14.7 H 14.7 H (11.5-14.5) % Plt Count 241 242 (140-400) K/mcL MPV 11.7 11.5 (9.4-12.4) fL Immature Gran % 0.7 0.6 (0-4) % Seg Neutrophils % 64.7 68.2 % Lymphocytes % 23.0 20.5 % Monocytes % 9.9 9.0 % Eosinophils % 1.4 1.3 % Basophils % 0.3 0.4 % Neutrophils # 7.7 7.6 (1.6-8.9) K/mcL Lymphocytes # 2.7 2.3 (0.6-4.6) K/mcL Monocytes # 1.2 1.0 (0.0-1.3) K/mcL Eosinophils # 0.2 0.2 (0.0-0.6) K/mcL Basophils # 0.0 0.0 (0.0-0.2) K/mcL Sodium 138 (136-145) mEq/L Potassium 3.9 (3.5-5.1) mEq/L Chloride 106 (98-107) mEq/L Carbon Dioxide 17 L (23-29) mEq/L BUN 33 H (8-23) mg/dL Creatinine 2.73 H (0.70-1.30) mg/dL Est GFR ( Amer) 28 L (> 60) Est GFR (Non-Af Amer) 23 L (> 60) BUN/Creatinine Ratio 12 (6-26) Glucose 111 H (70-105) mg/dL Calculated Osmolality 294 (280-300) Calcium 9.9 (8.6-10.3) mg/dL Total Bilirubin 0.4 (0.3-1.0) mg/dL AST 11 L (13-39) Units/L ALT 13 (7-52) Units/L Alkaline Phosphatase 78 (34-104) Units/L Troponin I < 0.03 (< 0.04) ng/mL Serum Total Protein 7.5 (6.4-8.9) g/dL Albumin 4.2 (3.5-5.7) g/dL Globulin 3.3 (2.4-3.5) g/dL Albumin/Globulin Ratio 1.3 (1.1-2.2)
[2018-01-24 15:34] LABS: Alanine Aminotransferase 13 Units/L (7-52); Albumin 4.2 g/dL (3.5-5.7); Albumin/Globulin Ratio 1.3 (1.1-2.2); Alkaline Phosphatase 78 Units/L (34-104); Aspartate Amino Transferase 11 Units/L (13-39); BUN/Creatinine Ratio 12 (6-26); Bilirubin,Total 0.4 mg/dL (0.3-1.0); Blood Urea Nitrogen 33 mg/dL (8-23); Calcium 9.9 mg/dL (8.6-10.3); Carbon Dioxide 17 mEq/L (23-29); Chloride 106 mEq/L (98-107); Globulin 3.3 g/dL (2.4-3.5); Glucose 111 mg/dL (70-105); Osmolality,Calculated 294 (280-300); Potassium 3.9 mEq/L (3.5-5.1); Sodium 138 mEq/L (136-145); Total Protein 7.5 g/dL (6.4-8.9); Troponin I < 0.03 ng/mL (< 0.04); eGFR For African Americans 28 (> 60); eGFR For Non-African Americans 23 (> 60)
[2018-01-24 16:16] LABS: Basophils % 0.4 %; Eosinophils # 0.2 K/mcL (0.0-0.6); Eosinophils % 1.3 %; Hematocrit 44.8 % (37.5-50.1); Hemoglobin 14.9 g/dL (12.9-16.9); Immature Granulocytes % 0.6 % (0-4); Lymphocytes # 2.3 K/mcL (0.6-4.6); Lymphocytes % 20.5 %; Mean Corpuscular HGB Conc 33.3 g/dL (31.6-35.5); Mean Corpuscular Volume 90.1 fL (83.0-100.0); Mean Platelet Volume 11.5 fL (9.4-12.4); Neutrophils # 7.6 K/mcL (1.6-8.9); Platelet Count 242 K/mcL (140-400); Red Blood Count 4.97 M/mcL (4.19-5.50); Red Cell Distribution Width 14.7 % (11.5-14.5); Segmented Neutrophils % 68.2 %
[2018-01-24] MEDS ORDERED: 0.9 % Sodium Chloride 1,000 ML IVC ONE (16:23)
[2018-01-24 16:49] LABS: Albumin 4.2 g/dL (3.5-5.7); Albumin/Globulin Ratio 1.1 (1.1-2.2); Bilirubin,Direct 0.2 mg/dL (0.0-0.2); Bilirubin,Indirect 0.2 mg/dL (0.0-1.2); Bilirubin,Total 0.4 mg/dL (0.3-1.0); Calcium 10.1 mg/dL (8.6-10.3); Globulin 3.7 g/dL (2.4-3.5); Potassium 4.1 mEq/L (3.5-5.1); Total Protein 7.9 g/dL (6.4-8.9)
[2018-01-24] MEDS ORDERED: *HR* Promethazine 25 MG/ML VIAL IVP ONE ×2 (18:04→19:24)
[2018-01-24] MEDS ORDERED: Acetaminophen 325 MG TABLET PO PRN (19:38)
[2018-01-24] MEDS ORDERED: Naloxone 0.4 MG/ML INJ IVP PRN (19:38)
--- NOTE | 2018-01-24 19:44 | Internal Med History&Physical ---
Date of Encounter: 01/24/18 Time of Encounter: 19:40 Internal Medicine - H&P: HPI Chief complaint: nausea Admitted From: Emergency Dept Plans for Post Hospital Care: Home History of present illness: Mr. Hernandez is a 67 year old male with past medical history significant for coronary artery disease and seizures who presented to the ER with generalized malaise and not able to eat and drink. I discharged the patient myself on 01/16 after an admission for diverticulitis and DELICIA. Nephrology followed along. His kidney function was improving at the time with IV hydration. Creatinine was 3.05 at time of discharge and Dr. Iniguez from nephrology was ok with discharge as long as the patient followed up and had repeat labs done outside. I gave him a script for abx and slip to get labs done which seems he had done as his creatinine was 1.48 on 01/22. He comes in again with inability to keep PO, abdominal pain since the morning in the left lower quadrant and worsening kidney function again. Creatinine is up to 2.89. He went to see his PCP and was sent in to get evaluated after they noted his BP was low. He vomited 3 times today and had one in the ED. He initially told me he still has 30 pills of abx left, however, I only gave him a script for 16 pills of Augmentin BID. When I asked him which abx he was not able to tell me. When I told him if he finished his Augmentin he said "yea those have long been gone". Of note, the patient was not very compliant last stay and took out his IV multiple times and it took some convincing to have him agree to keep IV in. He was also verbally abusive to nurses, CM, and PT staff. Patient was hemodynamically stable in the ED. He received antiemetics and IV fluids. Other than elevated kidney function his labs showed mild leukocytosis. Denies fever/chills/chest pain/ shortness of breath/diarrhea/constipation/urine symptoms/neurological symptoms. Past Med Surg Social Fam HX - Past Medical History Medical history: atrial fibrillation, coronary artery disease, CVA, hyperlipidemia, hypertension, myocardial infarction, peripheral artery disease, seizures Psychiatric history: no psych history - Past Surgical History Surgical History: appendectomy, carotid endarterectomy, orthopedic, other, other - Social History Smoking Status: Current every day smoker Smokeless Tobacco Status: No Alcohol use: occasionally Drug use: marijuana Internal Medicine - H&P: Meds Aspirin Enteric Coated [Aspirin EC] 81 mg PO DAILY 09/09/15 [History] Clopidogrel [Plavix] 75 mg PO DAILY 11/20/17 [History] Atorvastatin Calcium 80 mg PO HS 01/14/18 [History] Sotalol HCl [Betapace] 120 mg PO Q12H 01/14/18 [History] levETIRAcetam [Levetiracetam] 1,000 mg PO BID 01/14/18 [History] Amoxicillin/Clavulanate [Augmentin] 875 mg PO BIDWM #16 tablet 01/16/18 [Rx] 3 Allergy/AdvReac Type Severity Reaction Status Date / Time No Known Allergies Allergy Verified 01/24/18 13:52 All Systems PM: A 10-system review of systems was performed and is negative for pertinent findings except as documented above in the HPI. Review of systems: All systems reviewed are negative except for as mentioned above - Constitutional Vitals: Temp Pulse Resp BP Pulse Ox 97.9 F 86 20 101/84 98 01/24/18 13:52 01/24/18 17:28 01/24/18 17:28 01/24/18 17:28 01/24/18 13:52 Exam: GEN: NAD HEENT: AT, NC, No cyanosis, oral mucosa is moist, No JVD Lymphatics: No lymphadenoapthy Eyes: Extrocular muscles intact, anicteric CVS:RRR. S1, S2, No m/r/g RESP: CTAB ABD: Soft, LLQ tenderness., +BS EXT: No edema, No rashes, 2+ DP NEURO: Nonfocal, CN II-XII intact, No focal motor or sensory deficits Psych: Cooperative, Not anxious or depressed Internal Med - H&P Results - Labs CBC & Chem 7: 01/24/18 15:59 01/24/18 15:59 - Assessment and plan (1) Nausea & vomiting Current Visit: Yes Status: Acute Assessment and plan: He has associated LLQ pain. I have ordered another CT abd/pelvis to re-evaluate for diverticulitis. symptomatic treatment in the meantime. Start Cipro/flagyl if diverticulitis. Qualifiers: Vomiting type: unspecified Vomiting Intractability: unspecified Qualified Code(s): R11.2 - Nausea with vomiting, unspecified (2) Acute renal failure (ARF) Current Visit: No Status: Acute Assessment and plan: Continue with IVF. Consider nephrology consult if not improving with IVF. avoid nephrotoxins. Qualifiers: Acute renal failure type: unspecified Qualified Code(s): N17.9 - Acute kidney failure, unspecified (3) Metabolic acidosis Current Visit: No Status: Acute Assessment and plan: Anion gap from kidney failure. Will hydrate (4) Seizures Current Visit: No Status: Acute Assessment and plan: c/w Keppra (5) CAD (coronary artery disease) Current Visit: No Status: Chronic Assessment and plan: Resume home meds of ASA/plavix/statin. Patient is on sotalol for Afib Qualifiers: Coronary Disease-Associated Artery/Lesion type: [place] artery [place] vs. transplanted heart: [place] heart Associated angina: without angina Qualified Code(s): I25.10 - Atherosclerotic heart disease of [place] coronary artery without angina pectoris (6) Atrial fibrillation Current Visit: No Status: Acute Assessment and plan: c/w Sotalol. Avoid nephrotoxins Qualifiers: Atrial fibrillation type: paroxysmal Qualified Code(s): I48.0 - Paroxysmal atrial fibrillation (7) DVT prophylaxis Current Visit: No Status: Acute Assessment and plan: heparin SQ - Time Spent With Patient Total time spent is greater than 50% in coordination of care (as documented) at patient's floor/unit and/or counseling patient:
[2018-01-24] MEDS: Ondansetron 4 MG/2 ML VIAL IVP PRN (20:24)
[2018-01-24] MEDS: 0.9 % Sodium Chloride 1,000 ML IVC SCH (22:49)
[2018-01-24] MEDS: levETIRAcetam 250 MG TABLET PO SCH (22:53)
[2018-01-25] MEDS ORDERED: *HR* Promethazine 25 MG/ML VIAL IVP ONE (00:12)
[2018-01-25] MEDS ORDERED: 0.9 % Sodium Chloride 1,000 ML IVC ONE (00:14)
[2018-01-25] MEDS ORDERED: Magnesium Oxide 400 MG TABLET PO ONE (07:03)
[2018-01-25] MEDS: Aspirin Enteric Coated 81 MG Tablet PO SCH (07:37)
[2018-01-25] MEDS: Ondansetron 4 MG/2 ML VIAL IVP PRN ×2 (07:37→19:50)
[2018-01-25] MEDS: levETIRAcetam 250 MG TABLET PO SCH ×2 (07:37→19:50)
[2018-01-25 07:55] LABS: Basophils % 0.3 %; Eosinophils # 0.1 K/mcL (0.0-0.6); Eosinophils % 1.3 %; Hematocrit 34.5 % (37.5-50.1); Immature Granulocytes % 0.2 % (0-4); Lymphocytes # 1.9 K/mcL (0.6-4.6); Lymphocytes % 19.9 %; Mean Corpuscular HGB Conc 33.3 g/dL (31.6-35.5); Mean Corpuscular Hemoglobin 30.3 pg (28.0-33.3); Mean Platelet Volume 11.9 fL (9.4-12.4); Monocytes # 1.2 K/mcL (0.0-1.3); Monocytes % 12.5 %; Neutrophils # 6.2 K/mcL (1.6-8.9); Platelet Count 180 K/mcL (140-400); Red Blood Count 3.79 M/mcL (4.19-5.50); Red Cell Distribution Width 14.6 % (11.5-14.5); Segmented Neutrophils % 65.8 %
[2018-01-25 07:56] LABS: Hemoglobin 11.5 g/dL (12.9-16.9)
[2018-01-25 08:17] LABS: Potassium 3.6 mEq/L (3.5-5.1)
[2018-01-25] MEDS: 0.9 % Sodium Chloride 1,000 ML IVC SCH ×4 (09:48→22:53)
--- NOTE | 2018-01-25 13:51 | Internal Med Progress Note ---
Date of Encounter: 01/25/18 Time of Encounter: 13:49 - Assessment and plan (1) Atrial fibrillation Current Visit: No Status: Acute Assessment and plan: Rate controlled with Sotalol, will continue not on anticoagulation continue ASA Qualifiers: Atrial fibrillation type: paroxysmal Qualified Code(s): I48.0 - Paroxysmal atrial fibrillation (2) Seizures Current Visit: No Status: Chronic Assessment and plan: continue home dose of Keppra (3) DVT prophylaxis Current Visit: No Status: Acute Assessment and plan: heparin SQ (4) CAD (coronary artery disease) Current Visit: No Status: Chronic Assessment and plan: Resume home meds of ASA/plavix/statin. Patient is on sotalol for Afib no signs of angina present at this time Qualifiers: Coronary Disease-Associated Artery/Lesion type: [place] artery [place] vs. transplanted heart: [place] heart Associated angina: without angina Qualified Code(s): I25.10 - Atherosclerotic heart disease of [place] coronary artery without angina pectoris (5) Acute renal failure (ARF) Current Visit: No Status: Acute Assessment and plan: Renal function improved from previous day will continue IV fluids avoid nephrotoxins continue to monitor renal function closely Qualifiers: Acute renal failure type: unspecified Qualified Code(s): N17.9 - Acute kidney failure, unspecified (6) Metabolic acidosis Current Visit: No Status: Acute Assessment and plan: improved will continue IV fluids at this time if metabolic acidosis persists, will supplement bicarb continue to closely monitor (7) Nausea & vomiting Current Visit: Yes Status: Acute Assessment and plan: pt reports of acid reflux and CT abd findings consistent with esophagitis will start PPI BID no diverticulosis or diverticulitis reported on CT abd/pelvis will continue supportive care IV fluids, anti emetics clear liquid diet Qualifiers: Vomiting type: unspecified Vomiting Intractability: unspecified Qualified Code(s): R11.2 - Nausea with vomiting, unspecified (8) Esophagitis Current Visit: Yes Status: Acute Assessment and plan: as listed above - Time Spent With Patient Total time spent is greater than 50% in coordination of care (as documented) at patient's floor/unit and/or counseling patient: - Subjective Interval history: Pt seen and examined at bedside. Resting in bed and reports of feeling weak. States he has vomiting three times today. Minimally tolerating clear liquid diet. States his abd discomfort has resolved however nausea persists. - Constitutional Vitals: Temp Pulse Resp BP Pulse Ox 97.8 F 83 18 99/69 97 01/25/18 12:01 01/25/18 12:01 01/25/18 12:01 01/25/18 12:01 01/25/18 12:01 General appearance: Present: A&O X 3, no acute distress - Head Head exam: Present: atraumatic, normocephalic - Respiratory Respiratory exam: Present: CTAB. Absent: respiratory distress, wheezes - Cardiovascular Cardiovascular exam: Present: RRR, +S1, +S2. Absent: diastolic murmur, gallop, rubs, systolic murmur - GI/Abdominal GI/Abdominal exam: Present: normal bowel sounds, soft, no peritoneal signs. Absent: distended, tenderness - Extremities Exam Extremities exam: Present: warm, radial pulses palpable and symmetrical. Absent : calf tenderness, tenderness - Neurological Exam Neurological exam: Present: oriented X3 Internal Medicine: Result - Labs CBC & Chem 7: 01/25/18 07:31 01/25/18 07:31 Labs: Short CBC 01/25/18 Range/Units 07:31 WBC 9.5 (4.3-11.1) K/mcL Hgb 11.5 L D (12.9-16.9) g/dL Hct 34.5 L (37.5-50.1) % Plt Count 180 (140-400) K/mcL Neutrophils # 6.2 (1.6-8.9) K/mcL BMP 01/25/18 07:31 Sodium 144 Potassium 3.6 Chloride 114 H Carbon Dioxide 21 L BUN 30 H Creatinine 1.90 H Glucose 90 Calcium 8.0 L Cardiac Enzymes 01/25/18 Range/Units 01:06 Troponin I 0.03 (< 0.04) ng/mL - Impressions Impressions Abdomen/Pelvis CT 01/24/18 19:38 IMPRESSION: 1. No acute findings within the abdomen or pelvis. No evidence of obstructive uropathy or appendicitis. 2. Colonic diverticulosis with no CT evidence of diverticulitis. 3. Small hiatal hernia. Distal esophageal thickening suggesting esophagitis, possibly due to reflux. D/ / 01/24/2018 21:44:19 Gumaro Collins MD / [facility] Interpreting Provider: Gumaro Collins MD Consult Discharge Plan - Plan Referrals: Carmella Christianson DO [Primary Care Provider] - (web request 01/25/2018)
[2018-01-25] MEDS: Pantoprazole 40 MG VIAL IVP SCH ×2 (13:57→18:04)
[2018-01-25] MEDS: *HR* Heparin 5,000 UNIT/ML VIAL SQ SCH (18:04)
[2018-01-26] MEDS: Ondansetron 4 MG/2 ML VIAL IVP PRN ×2 (03:37→19:34)
[2018-01-26 04:36] LABS: Basophils % 0.1 %; Eosinophils # 0.2 K/mcL (0.0-0.6); Eosinophils % 2.2 %; Hematocrit 30.2 % (37.5-50.1); Immature Granulocytes % 0.4 % (0-4); Lymphocytes # 2.1 K/mcL (0.6-4.6); Lymphocytes % 28.9 %; Mean Corpuscular HGB Conc 32.5 g/dL (31.6-35.5); Mean Corpuscular Hemoglobin 30.4 pg (28.0-33.3); Mean Corpuscular Volume 93.8 fL (83.0-100.0); Mean Platelet Volume 11.8 fL (9.4-12.4); Monocytes # 0.6 K/mcL (0.0-1.3); Monocytes % 8.9 %; Neutrophils # 4.3 K/mcL (1.6-8.9); Platelet Count 154 K/mcL (140-400); Red Blood Count 3.22 M/mcL (4.19-5.50); Red Cell Distribution Width 14.8 % (11.5-14.5); Segmented Neutrophils % 59.5 %
[2018-01-26 04:41] LABS: Hemoglobin 9.8 g/dL (12.9-16.9)
[2018-01-26 04:49] LABS: BUN/Creatinine Ratio 15 (6-26); Blood Urea Nitrogen 18 mg/dL (8-23); Calcium 7.5 mg/dL (8.6-10.3); Carbon Dioxide 21 mEq/L (23-29); Chloride 113 mEq/L (98-107); Glucose 88 mg/dL (70-105); Magnesium 1.3 mg/dL (1.6-2.6); Osmolality,Calculated 293 (280-300); Potassium 4.1 mEq/L (3.5-5.1); Sodium 141 mEq/L (136-145); eGFR For African Americans > 60 (> 60); eGFR For Non-African Americans > 60 (> 60)
[2018-01-26] MEDS: 0.9 % Sodium Chloride 1,000 ML IVC SCH ×2 (06:00→16:48)
[2018-01-26] MEDS: *HR* Heparin 5,000 UNIT/ML VIAL SQ SCH ×2 (06:00→16:47)
[2018-01-26] MEDS: Pantoprazole 40 MG VIAL IVP SCH ×2 (06:00→16:47)
[2018-01-26] MEDS: Aspirin Enteric Coated 81 MG Tablet PO SCH (09:19)
[2018-01-26] MEDS: levETIRAcetam 250 MG TABLET PO SCH ×2 (09:19→19:34)
[2018-01-26 11:53] LABS: Bilirubin,Urine Negative (Negative); Blood,Urine Negative (Negative); Clarity,Urine Clear (Clear); Color,Urine Yellow (Yellow); Glucose,Urine (UA) Normal (Normal); Ketones,Urine Negative (Negative); Leukocyte Esterase,Urine Negative (Negative); Nitrite,Urine Negative (Negative); Protein,Urine Negative (Neg-Trace); Specific Gravity,Urine 1.016 (1.010-1.025); Urobilinogen,Urine Normal (Normal)
--- NOTE | 2018-01-26 12:13 | Internal Med Progress Note ---
Date of Encounter: 01/26/18 Time of Encounter: 12:11 - Assessment and plan (1) Atrial fibrillation Current Visit: No Status: Acute Assessment and plan: Rate controlled with Sotalol, will continue not on anticoagulation continue ASA Qualifiers: Atrial fibrillation type: paroxysmal Qualified Code(s): I48.0 - Paroxysmal atrial fibrillation (2) Seizures Current Visit: No Status: Chronic Assessment and plan: continue home dose of Keppra (3) DVT prophylaxis Current Visit: No Status: Acute Assessment and plan: heparin SQ (4) CAD (coronary artery disease) Current Visit: No Status: Chronic Assessment and plan: Resume home meds of ASA/plavix/statin. Patient is on sotalol for Afib no signs of angina present at this time hold Sotalol for SBP<100 Qualifiers: Coronary Disease-Associated Artery/Lesion type: [place] artery [place] vs. transplanted heart: [place] heart Associated angina: without angina Qualified Code(s): I25.10 - Atherosclerotic heart disease of [place] coronary artery without angina pectoris (5) Acute renal failure (ARF) Current Visit: No Status: Acute Assessment and plan: Renal function improved from previous day will continue IV fluids avoid nephrotoxins continue to monitor renal function closely Qualifiers: Acute renal failure type: unspecified Qualified Code(s): N17.9 - Acute kidney failure, unspecified (6) Metabolic acidosis Current Visit: No Status: Acute Assessment and plan: improved will continue IV fluids at this time continue to closely monitor (7) Nausea & vomiting Current Visit: Yes Status: Acute Assessment and plan: pt reports of acid reflux and CT abd findings consistent with esophagitis continue PPI BID no diverticulosis or diverticulitis reported on CT abd/pelvis will continue supportive care IV fluids, anti emetics advanced to full liquid diet NPO after midnight for EGD in am GI evaluation requested Qualifiers: Vomiting type: unspecified Vomiting Intractability: unspecified Qualified Code(s): R11.2 - Nausea with vomiting, unspecified (8) Esophagitis Current Visit: Yes Status: Acute Assessment and plan: as listed above (9) Hypomagnesemia Current Visit: Yes Status: Acute Assessment and plan: Mg supplemented continue to monitor electrolytes and replace as needed - Time Spent With Patient Total time spent is greater than 50% in coordination of care (as documented) at patient's floor/unit and/or counseling patient: - Subjective Interval history: Pt seen and examined at bedside. States he has been having difficulty swallowing with pain and the sensation something is stuck in his chest. Given CT findings of esophagitis, will obtain GI evaluation for possible EGD in am. will keep pt npo after midnight. - Constitutional Vitals: Temp Pulse Resp BP Pulse Ox 97.7 F 68 16 98/56 97 01/26/18 10:59 01/26/18 10:59 01/26/18 10:59 01/26/18 10:59 01/26/18 10:59 General appearance: Present: A&O X 3, no acute distress - Head Head exam: Present: atraumatic, normocephalic - Eye Eye exam: Present: conjuntiva pink, sclera anicteric - Respiratory Respiratory exam: Present: CTAB. Absent: respiratory distress, wheezes - Cardiovascular Cardiovascular exam: Present: RRR, +S1, +S2. Absent: diastolic murmur, gallop, rubs, systolic murmur - GI/Abdominal GI/Abdominal exam: Present: normal bowel sounds, soft, no peritoneal signs. Absent: distended, tenderness - Extremities Exam Extremities exam: Present: warm, radial pulses palpable and symmetrical. Absent : calf tenderness, tenderness - Neurological Exam Neurological exam: Present: oriented X3 Internal Medicine: Result - Labs CBC & Chem 7: 01/26/18 03:35 01/26/18 03:35 Labs: Short CBC 01/26/18 Range/Units 03:35 WBC 7.2 (4.3-11.1) K/mcL Hgb 9.8 L D (12.9-16.9) g/dL Hct 30.2 L (37.5-50.1) % Plt Count 154 (140-400) K/mcL Neutrophils # 4.3 (1.6-8.9) K/mcL BMP 01/26/18 03:35 Sodium 141 Potassium 4.1 Chloride 113 H Carbon Dioxide 21 L BUN 18 Creatinine 1.20 Glucose 88 Calcium 7.5 L Urine 01/26/18 Range/Units 11:40 Urine Color Yellow (Yellow) Urine Clarity Clear (Clear) Urine pH 6.0 (5.0-8.0) pH Units Ur Specific [place] 1.016 (1.010-1.025) Urine Protein Negative (Neg-Trace) mg/dL Urine Glucose (UA) Normal (Normal) mg/dL Consult Discharge Plan - Plan Referrals: Carmella Christianson DO [Primary Care Provider] - (web request 01/25/2018)
[2018-01-27] MEDS: Ondansetron 4 MG/2 ML VIAL IVP PRN ×2 (02:15→10:23)
[2018-01-27] MEDS: 0.9 % Sodium Chloride 1,000 ML IVC SCH (03:36)
[2018-01-27 04:25] LABS: Basophils % 0.2 %; Eosinophils # 0.2 K/mcL (0.0-0.6); Eosinophils % 2.7 %; Hematocrit 28.8 % (37.5-50.1); Hemoglobin 9.3 g/dL (12.9-16.9); Immature Granulocytes % 0.5 % (0-4); Lymphocytes # 1.7 K/mcL (0.6-4.6); Lymphocytes % 29.8 %; Mean Corpuscular HGB Conc 32.3 g/dL (31.6-35.5); Mean Corpuscular Hemoglobin 30.3 pg (28.0-33.3); Mean Corpuscular Volume 93.8 fL (83.0-100.0); Mean Platelet Volume 12.1 fL (9.4-12.4); Monocytes # 0.6 K/mcL (0.0-1.3); Monocytes % 9.9 %; Neutrophils # 3.3 K/mcL (1.6-8.9); Platelet Count 138 K/mcL (140-400); Red Blood Count 3.07 M/mcL (4.19-5.50); Red Cell Distribution Width 14.9 % (11.5-14.5); Segmented Neutrophils % 56.9 %
[2018-01-27 04:34] LABS: BUN/Creatinine Ratio 13 (6-26); Blood Urea Nitrogen 13 mg/dL (8-23); Calcium 7.7 mg/dL (8.6-10.3); Carbon Dioxide 22 mEq/L (23-29); Chloride 116 mEq/L (98-107); Glucose 84 mg/dL (70-105); Magnesium 1.6 mg/dL (1.6-2.6); Osmolality,Calculated 291 (280-300); Phosphorous 1.5 mg/dL (2.7-4.5); Potassium 4.9 mEq/L (3.5-5.1); Sodium 141 mEq/L (136-145); eGFR For African Americans > 60 (> 60); eGFR For Non-African Americans > 60 (> 60)
[2018-01-27] MEDS: *HR* Heparin 5,000 UNIT/ML VIAL SQ SCH ×2 (05:21→18:17)
[2018-01-27] MEDS: Pantoprazole 40 MG VIAL IVP SCH (05:23)
[2018-01-27] MEDS: levETIRAcetam 250 MG TABLET PO SCH ×2 (10:13→21:28)
[2018-01-27] MEDS: Aspirin Enteric Coated 81 MG Tablet PO SCH (10:14)
[2018-01-27] MEDS ORDERED: *HR* Midazolam HCl 5 MG/5 ML VIAL IVP ONE (12:27)
[2018-01-27] MEDS ORDERED: *HR* FentaNYL (PF) 100 MCG/2 ML VIAL ONE (12:28)
[2018-01-27] MEDS ORDERED: Simethicone 40 MG/0.6 ML MLS IR ONE (12:52)
[2018-01-27] MEDS ORDERED: Tetracaine/Benzocaine/Butamben 200MG/SPRAY (100SPY/BOT) MM ONE (12:52)
[2018-01-27] MEDS ORDERED: *HR* FentaNYL (PF) 100 MCG/2 ML VIAL IVP ONE (12:52)
[2018-01-27] MEDS ORDERED: *HR* Midazolam HCl 2 MG/2 ML VIAL IVP ONE (12:52)
--- NOTE | 2018-01-27 12:52 | Pre-Sedation Evaluation ---
Pre-sedation evaluation - Pre-sedation checklist Date of procedure: 01/27/18 Procedure: egd Recent Vitals: Last Vital Signs Temp 98.4 F 01/27/18 12:48 Pulse 58 01/27/18 12:48 Resp 17 01/27/18 12:48 BP 144/85 01/27/18 12:48 Pulse Ox 100 01/27/18 12:48 H&P (including ROS) documented in medical record: No Previous reaction to sedatives/anesthetics: No Dietary Status: NPO after Midnight Dentition: No loose teeth or bridges ASA Classification *see protocol: CLASS III-Severe systemic disease Plan of Care: Pt appropriate candidate for procedure/moderate/conscious sedation , Risks/benefits of procedure/sedation discussed w/ patient/family
--- NOTE | 2018-01-27 13:40 | Gastroenterology Consult Note ---
<Kane Butts - Last Filed: 01/27/18 13:38> Date of Encounter: 01/27/18 Time of Encounter: 10:50 - Assessment and plan (1) Dysphagia Current Visit: Yes Status: Acute Assessment and plan: Plan for EGD today to r/o esophagitis, gastritis, duodenitis, PUD, MW tear, or AVM, with possible dilation. Keep NPO for EGD. Qualifiers: Dysphagia type: unspecified Qualified Code(s): R13.10 - Dysphagia, unspecified (2) Nausea & vomiting Current Visit: Yes Status: Acute Assessment and plan: Plan for EGD today to r/o esophagitis, gastritis, duodenitis, PUD, MW tear, or AVM. Continue anti-emetics and PPI. Qualifiers: Vomiting type: unspecified Vomiting Intractability: unspecified Qualified Code(s): R11.2 - Nausea with vomiting, unspecified (3) Esophagitis Current Visit: Yes Status: Acute Assessment and plan: Noted on CT. Continue PPI. Plan for EGD today to r/o esophagitis, gastritis, duodenitis, PUD, MW tear, or AVM. - Time Spent With Patient Total time spent is greater than 50% in coordination of care (as documented) at patient's floor/unit and/or counseling patient: GI History of Present Illness - Data of Consult Patient: known to practice within the last 3 years Consult date: 01/27/18 Requesting Physician: Angie Crandall MD - Consult Narrative Reason for consult: Dysphagia History of present illness: Mr. Hernandez is a 67 year old male with PMHx of Afib, CAD, CVA, HLD, HTN [place], who presented to the ER with generalized malaise and not able to eat and drink due to nausea and vomiting. He complains of acid reflux as well. He was started on IV fluids, anti-emetics, and BID PPI. CT A/P showed colonic diverticulosis, small hiatal hernia, and distal esophageal thickening. He reports difficulty swallowing solids and liquids, feeling like they get "stuck". Hgb on admission was 14.2 and today Hgb 9.3. Procedures: Colonoscopy 01/01/2017 Dr. Abbasi: Poor prep, diverticulosis, repeat in 6 months with 2 day prep. EGD 01/01/2017 Dr. Abbasi: Chronic gastritis NSAIDs: ASA Anticoagulation: Plavix Past Med Surg Social Fam HX - Past Medical History Medical history: atrial fibrillation, coronary artery disease, CVA, hyperlipidemia, hypertension, myocardial infarction, peripheral artery disease, seizures Psychiatric history: no psych history - Past Surgical History Surgical History: appendectomy, carotid endarterectomy, orthopedic, other, other - Social History Smoking Status: Current every day smoker Smokeless Tobacco Status: No Alcohol use: occasionally Drug use: marijuana - Gastrointestinal Gastrointestinal: Present: as per HPI - Constitutional Constitutional: as per HPI - EENT Eyes: as per HPI Ears: Present: as per HPI Nose, mouth and throat: Present: as per HPI - Cardiovascular Cardiovascular ROS: Present: as per HPI - Respiratory Respiratory IM: Present: as per HPI - Genitourinary Genitourinary: Absent: change in color, Urinary frequency - Neurological ROS Neurological GI: Present: as per HPI - Hematologic/Lymphatic Hematologic/Lymphatic pediatric: Present: as per HPI - Musculoskeletal Musculoskeletal ROS GI: Present: as per HPI - Integumentary Integumentary GI: Present: as per HPI - Psychiatric ROS Psychiatric GI: Present: as per HPI - Endocrine Endocrine IM: Present: as per HPI - Constitutional Vitals: Temp Pulse Resp BP Pulse Ox 98.4 F 79 17 157/86 100 01/27/18 12:58 01/27/18 12:58 01/27/18 12:58 01/27/18 12:58 01/27/18 12:58 General appearance: Present: cooperative, A&O X 3, no acute distress, answers questions appropriately - Head Head exam: Present: atraumatic, normocephalic - Eye Eye exam: Present: normal appearance, sclera anicteric - ENT ENT exam: Present: mucous membranes dry - Neck Neck exam general surgery: Present: normal inspection, trachea midline - Respiratory Respiratory exam: Present: CTAB. Absent: rales, rhonchi - Cardiovascular Cardiovascular exam: Present: RRR, +S1, +S2 - GI/Abdominal GI/Abdominal exam: Present: soft, no peritoneal signs. Absent: distended, firm , guarding, tenderness - Rectal Rectal exam: Present: deferred - Extremities Exam Extremities exam: Present: warm - Neurological Exam Neurological exam: Present: no focal deficits - Psychiatric Psychiatric exam: Present: normal affect, normal mood - Skin Skin exam: Present: dry, intact, normal color, warm Results - Labs CBC & Chem 7: 01/27/18 02:34 01/27/18 02:34 Labs: Last Result Calcium 7.7 mg/dL (8.6-10.3) L 01/27/18 02:34 Troponin I 0.03 ng/mL (< 0.04) 01/25/18 01:06 Entire Visit Hgb 9.3 g/dL (12.9-16.9) L 01/27/18 02:34 Hct 28.8 % (37.5-50.1) L 01/27/18 02:34 Total Bilirubin 0.4 mg/dL (0.3-1.0) 01/24/18 15:59 AST 14 Units/L (13-39) 01/24/18 15:59 ALT 14 Units/L (7-52) 01/24/18 15:59 Amylase 62 Units/L (29-103) 01/24/18 15:59 Lipase 28 Units/L (11-82) 01/24/18 15:59 Consult Discharge Plan - Plan Referrals: Carmella Christianson DO [Primary Care Provider] - (web request 01/25/2018) <Jessika Abbasi - Last Filed: 01/27/18 15:17> Date of Encounter: 01/27/18 Time of Encounter: 13:00 - Time Spent With Patient Total time spent is greater than 50% in coordination of care (as documented) at patient's floor/unit and/or counseling patient: GI History of Present Illness - Data of Consult Requesting Physician: Angie Crandall MD - Consult Narrative History of present illness: Mr. Hernandez is a 67 year old male - Constitutional Vitals: Temp Pulse Resp BP Pulse Ox 98.4 F 79 17 157/86 100 01/27/18 12:58 01/27/18 12:58 01/27/18 12:58 01/27/18 12:58 01/27/18 12:58 Results - Labs CBC & Chem 7: 01/27/18 02:34 01/27/18 02:34 Labs: Last Result Calcium 7.7 mg/dL (8.6-10.3) L 01/27/18 02:34 Troponin I 0.03 ng/mL (< 0.04) 01/25/18 01:06 Entire Visit Hgb 9.3 g/dL (12.9-16.9) L 01/27/18 02:34 Hct 28.8 % (37.5-50.1) L 01/27/18 02:34 Total Bilirubin 0.4 mg/dL (0.3-1.0) 01/24/18 15:59 AST 14 Units/L (13-39) 01/24/18 15:59 ALT 14 Units/L (7-52) 01/24/18 15:59 Amylase 62 Units/L (29-103) 01/24/18 15:59 Lipase 28 Units/L (11-82) 01/24/18 15:59 - Attending Attestation I have personally performed a face to face evaluation on this patient. I have reviewed and agree with the care plan. History and Exam by me shows: Since seen. Complaining of dysphagia. CT with thickening of the esophagus. Recommendation: EGD to rule out esophagitis and other etiologies for his dysphagia and CT finding
--- NOTE | 2018-01-27 14:15 | Internal Med Progress Note ---
Date of Encounter: 01/27/18 Time of Encounter: 10:05 - Assessment and plan (1) Atrial fibrillation Current Visit: No Status: Acute Assessment and plan: Rate controlled with Sotalol, will continue not on anticoagulation continue ASA Qualifiers: Atrial fibrillation type: paroxysmal Qualified Code(s): I48.0 - Paroxysmal atrial fibrillation (2) Seizures Current Visit: No Status: Chronic Assessment and plan: continue home dose of Keppra (3) DVT prophylaxis Current Visit: No Status: Acute Assessment and plan: heparin SQ (4) CAD (coronary artery disease) Current Visit: No Status: Chronic Assessment and plan: Resume home meds of ASA/plavix/statin. Patient is on sotalol for Afib no signs of angina present at this time hold Sotalol for SBP<100 Qualifiers: Coronary Disease-Associated Artery/Lesion type: [place] artery [place] vs. transplanted heart: [place] heart Associated angina: without angina Qualified Code(s): I25.10 - Atherosclerotic heart disease of [place] coronary artery without angina pectoris (5) Acute renal failure (ARF) Current Visit: No Status: Resolved Assessment and plan: Renal function back to baseline d/c IV fluids avoid nephrotoxins continue to monitor renal function closely Qualifiers: Acute renal failure type: unspecified Qualified Code(s): N17.9 - Acute kidney failure, unspecified (6) Metabolic acidosis Current Visit: No Status: Acute Assessment and plan: improved continue to closely monitor (7) Nausea & vomiting Current Visit: Yes Status: Acute Assessment and plan: pt reports of acid reflux and CT abd findings consistent with esophagitis continue PPI BID no diverticulosis or diverticulitis reported on CT abd/pelvis will continue supportive care anti emetics NPO until after EGD Qualifiers: Vomiting type: unspecified Vomiting Intractability: unspecified Qualified Code(s): R11.2 - Nausea with vomiting, unspecified (8) Esophagitis Current Visit: Yes Status: Acute Assessment and plan: as listed above (9) Hypomagnesemia Current Visit: Yes Status: Acute Assessment and plan: resolved continue to monitor electrolytes and replace as needed (10) Dysphagia Current Visit: Yes Status: Acute Assessment and plan: scheduled for EGD today(01/27/18) Qualifiers: Dysphagia type: unspecified Qualified Code(s): R13.10 - Dysphagia, unspecified - Time Spent With Patient Total time spent is greater than 50% in coordination of care (as documented) at patient's floor/unit and/or counseling patient: - Subjective Interval history: Pt seen and examined at bedside. Scheduled for EGD later today no overnight events reported. - Constitutional Vitals: Temp Pulse Resp BP Pulse Ox 98.4 F 79 17 157/86 100 01/27/18 12:58 01/27/18 12:58 01/27/18 12:58 01/27/18 12:58 01/27/18 12:58 General appearance: Present: A&O X 3, no acute distress - Head Head exam: Present: atraumatic, normocephalic - Eye Eye exam: Present: conjuntiva pink, sclera anicteric - Respiratory Respiratory exam: Present: CTAB. Absent: accessory muscle use, rales, rhonchi, wheezes - Cardiovascular Cardiovascular exam: Present: RRR, +S1, +S2 - GI/Abdominal GI/Abdominal exam: Present: normal bowel sounds, soft, no peritoneal signs. Absent: distended, tenderness - Extremities Exam Extremities exam: Present: warm, radial pulses palpable and symmetrical. Absent : calf tenderness, pedal edema - Neurological Exam Neurological exam: Present: oriented X3 Internal Medicine: Result - Labs CBC & Chem 7: 01/27/18 02:34 01/27/18 02:34 Labs: Short CBC 01/27/18 Range/Units 02:34 WBC 5.8 (4.3-11.1) K/mcL Hgb 9.3 L (12.9-16.9) g/dL Hct 28.8 L (37.5-50.1) % Plt Count 138 L (140-400) K/mcL Neutrophils # 3.3 (1.6-8.9) K/mcL BMP 01/27/18 02:34 Sodium 141 Potassium 4.9 Chloride 116 H Carbon Dioxide 22 L BUN 13 Creatinine 0.99 Glucose 84 Calcium 7.7 L Consult Discharge Plan - Plan Referrals: Carmella Christianson DO [Primary Care Provider] - (web request 01/25/2018)
[2018-01-27] MEDS: Sucralfate 1 GM TABLET PO SCH ×2 (18:16→21:28)
[2018-01-28 06:03] LABS: Basophils % 0.2 %; Eosinophils # 0.2 K/mcL (0.0-0.6); Eosinophils % 3.4 %; Hematocrit 28.4 % (37.5-50.1); Hemoglobin 9.3 g/dL (12.9-16.9); Immature Granulocytes % 0.7 % (0-4); Lymphocytes % 35.3 %; Mean Corpuscular HGB Conc 32.7 g/dL (31.6-35.5); Mean Corpuscular Hemoglobin 30.5 pg (28.0-33.3); Mean Corpuscular Volume 93.1 fL (83.0-100.0); Mean Platelet Volume 11.5 fL (9.4-12.4); Monocytes # 0.5 K/mcL (0.0-1.3); Monocytes % 8.7 %; Neutrophils # 2.9 K/mcL (1.6-8.9); Platelet Count 140 K/mcL (140-400); Red Blood Count 3.05 M/mcL (4.19-5.50); Red Cell Distribution Width 14.9 % (11.5-14.5); Segmented Neutrophils % 51.7 %
[2018-01-28] MEDS: *HR* Heparin 5,000 UNIT/ML VIAL SQ SCH (06:11)
[2018-01-28 06:14] LABS: BUN/Creatinine Ratio 10 (6-26); Blood Urea Nitrogen 10 mg/dL (8-23); Calcium 7.3 mg/dL (8.6-10.3); Carbon Dioxide 21 mEq/L (23-29); Chloride 117 mEq/L (98-107); Glucose 98 mg/dL (70-105); Magnesium 1.2 mg/dL (1.6-2.6); Osmolality,Calculated 295 (280-300); Phosphorous 2.1 mg/dL (2.7-4.5); Potassium 4.3 mEq/L (3.5-5.1); Sodium 143 mEq/L (136-145); eGFR For African Americans > 60 (> 60); eGFR For Non-African Americans > 60 (> 60)
--- NOTE | 2018-01-28 07:54 | Electrocardiograph Report ---
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
[2018-01-28] MEDS: Sucralfate 1 GM TABLET PO SCH ×2 (08:44→11:53)
[2018-01-28] MEDS: levETIRAcetam 250 MG TABLET PO SCH (08:48)
[2018-01-28] MEDS ORDERED: Aspirin Enteric Coated 81 MG Tablet PO SCH (09:00)
[2018-01-28 11:10] VITALS: BP 146/80
--- NOTE | 2018-01-28 13:35 | Discharge Summary ---
- NOTES TO OUTPATIENT PROVIDER Notes to Outpatient Provider: Patient was found to have grade D esophagitis and was started on PPI and carafate Orders not resulted at time of discharge: Pending orders 01/27/18 13:00 Surgical Pathology [PTH] Routine Date of Encounter: 01/28/18 Time of Encounter: 14:43 - Discharge Diagnosis (1) Atrial fibrillation Priority: Secondary Status: Acute Qualifiers: Atrial fibrillation type: paroxysmal Qualified Code(s): I48.0 - Paroxysmal atrial fibrillation (2) Seizures Priority: Secondary Status: Chronic (3) DVT prophylaxis Priority: Secondary Status: Acute (4) CAD (coronary artery disease) Priority: Secondary Status: Chronic Qualifiers: Coronary Disease-Associated Artery/Lesion type: [place] artery [place] vs. transplanted heart: [place] heart Associated angina: without angina Qualified Code(s): I25.10 - Atherosclerotic heart disease of [place] coronary artery without angina pectoris (5) Acute renal failure (ARF) Priority: Primary Status: Resolved Qualifiers: Acute renal failure type: unspecified Qualified Code(s): N17.9 - Acute kidney failure, unspecified (6) Metabolic acidosis Priority: Secondary Status: Resolved (7) Nausea & vomiting Priority: Secondary Status: Resolved Qualifiers: Vomiting type: unspecified Vomiting Intractability: unspecified Qualified Code(s): R11.2 - Nausea with vomiting, unspecified (8) Esophagitis Priority: Secondary Status: Acute (9) Hypomagnesemia Priority: Secondary Status: Acute (10) Dysphagia Priority: Secondary Status: Resolved Qualifiers: Dysphagia type: unspecified Qualified Code(s): R13.10 - Dysphagia, unspecified Hospital course: Mr. Hernandez is a 67 year old male with PMH of CAD, Seizures who was admitted for acute renal failure, nausea, vomiting. He reported of having difficulty swallowing and sensation of food being stuck in his chest.He was started on IV fluids and underwent EGD by GI. Pt's renal function improved with IV fluids and EGD reported Grade D esophagitis. He was started on PPI and carafate as per GI. His renal function is back to baseline and he has been tolerating PO intake without any nausea or vomiting. He is medically stable and will be discharged to home with follow up with PCP and GI. Pt in agreement with the discharge care and plan. Discharge discussed with: patient, nurse, case management - Time Spent with Patient Total time spent providing and/or coordinating discharge services: Less than 30 minutes - Discharge Medications Prescriptions: Lansoprazole [Prevacid] 30 mg PO BIDAC #60 capsule. Sucralfate [Carafate] 1 gm PO QIDAC #120 tablet Home Medications: Aspirin Enteric Coated [Aspirin EC] 81 mg PO DAILY 09/09/15 [History] Clopidogrel [Plavix] 75 mg PO DAILY 11/20/17 [History] Atorvastatin Calcium 80 mg PO HS 01/14/18 [History] Sotalol HCl [Betapace] 120 mg PO Q12H 01/14/18 [History] levETIRAcetam [Levetiracetam] 1,000 mg PO BID 01/14/18 [History] Lansoprazole [Prevacid] 30 mg PO BIDAC #60 capsule. 01/28/18 [Rx] Sucralfate [Carafate] 1 gm PO QIDAC #120 tablet 01/28/18 [Rx] Allergies/Adverse Reactions: 3 Allergy/AdvReac Type Severity Reaction Status Date / Time No Known Allergies Allergy Verified 01/24/18 13:52 Date of admission: 01/24/18 17:39 Primary care physician: Leo Ash Consults: 01/26/18 14:39 Consult to Gastroenterology [CONS] Routine Consulting Provider: Gastroenterology Jasmina Reason for Consult: dysphagia, needs EGD. Pt is already kept NPO Call Completed: No Discharging clinician: Angie Crandall Anticipated date of discharge: 01/28/18 - Constitutional Vitals: Temp Pulse Resp BP Pulse Ox 98.3 F 64 18 146/80 96 01/28/18 11:02 01/28/18 11:02 01/28/18 06:49 01/28/18 11:02 01/28/18 04:37 General appearance: Present: A&O X 3, no acute distress - Head Head exam: Present: atraumatic, normocephalic - Eye Eye exam: Present: conjuntiva pink, sclera anicteric - Respiratory Respiratory exam: Absent: rales, respiratory distress, wheezes - Cardiovascular Cardiovascular exam: Present: RRR, +S1, +S2. Absent: diastolic murmur, gallop, rubs, systolic murmur - GI/Abdominal GI/Abdominal exam: Present: normal bowel sounds, soft, no peritoneal signs. Absent: distended, tenderness - Extremities Exam Extremities exam: Present: warm, radial pulses palpable and symmetrical. Absent : calf tenderness - Neurological Exam Neurological exam: Present: oriented X3 - Patient Status Disposition: Home, Self-Care Condition: Good Functional capacity at discharge: independent ambulation Overall status at discharge: patient is back to baseline - Discharge Instructions Follow Up With: Carmella Christianson DO [Primary Care Provider] - (web request 01/25/2018) Additional Instructions: Please follow up with your primary care physician within five days after your discharge from the hospital. Please follow up with GI within one to two weeks after your discharge from the hospital. Prevacid twice a day and Carafate four times a day has been added to your home medications. Please take these medications as prescribed. Resume all other home medications as prescribed by your primary care physician. - Diet and Activity Activity: increase activity as tolerated Diet: low fat, low cholesterol, low salt diet
--- NOTE | 2018-01-29 00:47 | Electrocardiograph Report ---
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
--- NOTE | 2018-01-29 00:47 | Electrocardiograph Report ---
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
== END 2018-01-28 16:45 | disposition home or self-care (01) | DRG 683 ==
LOC: 2ANU 13:34 → EMEROO 13:34 → OBSVTOIN 17:39 → 2ANU 21:19
PROVIDERS: ADMIT Internal Medicine; ATTEND Internal Medicine
PROC: ENDOEBX (2018-01-27 13:30)

== ENCOUNTER 2019-11-11 12:49 | Observation (INO) ==
[2019-11-11] MEDS ORDERED: DilTIAZem 50 MG in 0.9 % Sodium Chloride 40 ML IVC SCH ×2 (13:15→14:13)
[2019-11-11 14:04] LABS: Basophils # 0.1 K/mcL (0.0-0.2); Basophils % 0.7 %; Eosinophils # 0.2 K/mcL (0.0-0.6); Eosinophils % 2.4 %; Hematocrit 32.2 % (37.5-50.1); Hemoglobin 9.7 g/dL (12.9-16.9); Immature Granulocytes % 0.3 % (0-4); Lymphocytes # 2.7 K/mcL (0.6-4.6); Lymphocytes % 27.8 %; Mean Corpuscular HGB Conc 30.1 g/dL (31.6-35.5); Mean Corpuscular Hemoglobin 24.1 pg (28.0-33.3); Mean Corpuscular Volume 80.1 fL (83.0-100.0); Mean Platelet Volume 10.9 fL (9.4-12.4); Monocytes % 10.2 %; Neutrophils # 5.7 K/mcL (1.6-8.9); Platelet Count 242 K/mcL (140-400); Red Blood Count 4.02 M/mcL (4.19-5.50); Red Cell Distribution Width 15.2 % (11.5-14.5); Segmented Neutrophils % 58.6 %; White Blood Count 9.8 K/mcL (4.3-11.1)
[2019-11-11 14:05] LABS: BUN/Creatinine Ratio 22 (6-26); Blood Urea Nitrogen 26 mg/dL (8-23); Carbon Dioxide 23 mEq/L (23-29); Chloride 103 mEq/L (98-107); Glucose 92 mg/dL (70-105); Osmolality,Calculated 290 (280-300); Potassium 3.9 mEq/L (3.5-5.1); Sodium 138 mEq/L (136-145); Thyroid Stimulating Hormone 1.947 mcIU/mL (0.340-5.600); Troponin I < 0.03 ng/mL (< 0.04); eGFR For African Americans > 60 (> 60); eGFR For Non-African Americans > 60 (> 60)
[2019-11-11 14:08] LABS: Prothrombin Time 11.2 Seconds (9.4-12.1)
[2019-11-11] MEDS ORDERED: Naloxone 0.4 MG/ML INJ IVP PRN (14:09)
[2019-11-11] MEDS ORDERED: Bismuth Subsalicylate 120 ML ORAL SUSPENSION PO PRN (14:10)
[2019-11-11] MEDS ORDERED: Nitroglycerin 0.4 MG TAB.SUBL SL PRN (14:10)
[2019-11-11] MEDS: DilTIAZem CD (24hr) 120 MG CAP.ER.24H PO SCH (18:26)
[2019-11-11] MEDS: Mirtazapine 15 MG TABLET PO SCH (20:41)
[2019-11-11] MEDS: levETIRAcetam 250 MG TABLET PO SCH (20:42)
[2019-11-11] MEDS: Apixaban 5 MG TABLET PO SCH (20:42)
[2019-11-11] MEDS: Clobetasol Propionate 0.05% 15 GM Cream Tube TP SCH (22:30)
[2019-11-11] MEDS: FluocinoNIDE 0.05% CRM 15 GM TUBE TP SCH (22:30)
[2019-11-12] MEDS ORDERED: 0.9 % Sodium Chloride 1,000 ML IVC SCH (08:00)
[2019-11-12] MEDS: levETIRAcetam 250 MG TABLET PO SCH ×2 (08:28→22:08)
[2019-11-12] MEDS: Venlafaxine XR (24 HR) 37.5 MG CAP.ER.24H PO SCH (08:28)
[2019-11-12] MEDS: Apixaban 5 MG TABLET PO SCH ×2 (08:29→22:08)
[2019-11-12] MEDS: DilTIAZem CD (24hr) 120 MG CAP.ER.24H PO SCH (08:30)
[2019-11-12] MEDS: Aspirin Enteric Coated 81 MG Tablet PO SCH (08:31)
[2019-11-12] MEDS: Clobetasol Propionate 0.05% 15 GM Cream Tube TP SCH ×2 (08:33→22:09)
[2019-11-12] MEDS: FluocinoNIDE 0.05% CRM 15 GM TUBE TP SCH ×2 (08:33→22:09)
[2019-11-12] MEDS ORDERED: 0.9 % Sodium Chloride 500 ML IVC SCH (08:45)
[2019-11-12] MEDS ORDERED: Lisinopril 20 MG TABLET PO SCH (09:00)
[2019-11-12] MEDS: Mirtazapine 15 MG TABLET PO SCH (22:08)
[2019-11-13] MEDS: Apixaban 5 MG TABLET PO SCH ×2 (09:58→20:36)
[2019-11-13] MEDS: levETIRAcetam 250 MG TABLET PO SCH ×2 (09:58→20:36)
[2019-11-13] MEDS: Aspirin Enteric Coated 81 MG Tablet PO SCH (09:58)
[2019-11-13] MEDS: Venlafaxine XR (24 HR) 37.5 MG CAP.ER.24H PO SCH (09:58)
[2019-11-13] MEDS: FluocinoNIDE 0.05% CRM 15 GM TUBE TP SCH ×2 (09:59→20:37)
[2019-11-13] MEDS: Clobetasol Propionate 0.05% 15 GM Cream Tube TP SCH ×2 (09:59→20:37)
[2019-11-13 19:45] VITALS: BP 109/69
[2019-11-13] MEDS: Mirtazapine 15 MG TABLET PO SCH (20:36)
== END 2019-11-13 22:02 | disposition home or self-care (01) ==
LOC: EMEROOARM 12:49 → 2ANU 12:49 → SUATTDRO 14:50 → 2ANU 15:30
PROVIDERS: ADMIT Internal Medicine; ATTEND Internal Medicine